=== PATIENT | female | born 1955 | race Caucasian/White ===

== ENCOUNTER 2023-07-02 10:41 | Outpatient (CLI) | payer MEDICARE, SELFPAY ==
[2023-07-02 19:07] LABS: Basophils Percent Auto 0.4 % (0.2-1.2); Eosinophils Absolute Auto 0.1 K/mm3 (0-0.3); Eosinophils Percent Auto 1.2 % (0-4.4); Hematocrit 38.9 % (37.0-47.0); Hemoglobin 12.9 g/dL (12.0-15.0); Immature Granulocyte Absolute 0.03 K/mm3 (0.00-0.031); Immature Granulocyte Percent A 0.3 % (0-0.5); Lymphocytes Absolute Auto 1.86 K/mm3 (0.9-3.2); Lymphocytes Percent Auto 17.9 % (18.3-44.2); Mean Corpuscular HGB Conc 33.2 g/dl (32-36); Mean Corpuscular Hemoglobin 30.6 pg (26-34); Mean Corpuscular Volume 92.4 fl (80-100); Mean Platelet Volume 10.4 fl (7.4-10.4); Monocytes Absolute Auto 0.7 K/mm3 (0.1-0.6); Monocytes Percent Auto 6.3 % (2.6-8.5); Neutrophils Absolute Auto 7.7 K/mm3 (1.3-6.7); Neutrophils Percent Auto 73.9 % (45.5-73.1); Platelet Count Result 375 k/mm3 (150-375); Red Blood Count 4.21 M/mm3 (4.2-5.4); Red Cell Distribution Width 13.6 % (11.5-14.5); White Blood Count 10.4 K/mm3 (4.5-10.0)
[2023-07-02 19:44] LABS: Alanine Aminotransferase 21 U/L (6-35); Albumin Level 4.7 g/dL (3.5-5.1); Alkaline Phosphatase 75 U/L (38-126); Anion Gap 5 mmol/L (8-16); Aspartate Amino Transferase 32 U/L (14-36); Bilirubin,Total 0.4 mg/dL (0.2-1.3); Blood Urea Nitrogen 12 mg/dL (7-17); Calcium 9.5 mg/dL (8.4-10.2); Carbon Dioxide 30 mmol/L (22-30); Chloride 100 mmol/L (98-107); Cholesterol 176 mg/dL (0-200); Estimated Glomerular Filt Rate > 60; Glucose 81 mg/dL (65-110); HDL Direct 55 mg/dL; Potassium 4.2 mmol/L (3.4-5.0); Sodium 135 mmol/L (137-145); Triglycerides 98 mg/dL (<150)
[2023-07-02 19:51] LABS: LDL Cholesterol Direct 91 mg/dL
== END 2023-07-02 10:42 | disposition home or self-care (01) ==
PROVIDERS: PCP Family Medicine; Visit Provider Nurse Practitioner Family
DX: I10 Essential (primary) hypertension (principal); Z13.220 Encounter for screening for lipoid disorders; Z13.29 Encounter for screening for other suspected endocrine disorder; E53.8 Deficiency of other specified B group vitamins; E55.9 Vitamin D deficiency, unspecified; R73.9 Hyperglycemia, unspecified
CPT/HCPCS: 36415; 80053; 80061; 82607; 84443; 85025

== ENCOUNTER 2023-08-30 11:36 | Outpatient (CLI) | payer MEDICARE, SELFPAY ==
[2023-08-30 21:14] LABS: Vitamin D 25 Hydroxy 36.1 ng/mL
[2023-08-30 22:38] LABS: Hemoglobin A1C 5.3 % (<5.7)
== END 2023-08-30 11:37 | disposition home or self-care (01) ==
PROVIDERS: PCP Family Medicine; Visit Provider Nurse Practitioner Family
DX: E55.9 Vitamin D deficiency, unspecified (principal); R73.9 Hyperglycemia, unspecified; E03.9 Hypothyroidism, unspecified; E53.8 Deficiency of other specified B group vitamins
CPT/HCPCS: 36415; 82306; 82607; 83036; 84443

== ENCOUNTER 2023-10-21 13:53 | Outpatient (CLI) | payer MEDICARE, SELFPAY ==
--- NOTE | ~2023-10-21 | DEXA_ITS ---
Bone Density Report Name: TREVA SHOEMAKER Age: 68 Sex: Female Ethnicity: White Date of : 1955 Indication: postmenopausal; screening for osteoporosis; Referring Provider: ENOC MORALES Study: Bone densitometry was performed. Exam Date: October 21, 2023 Accession number: [id number] Bone Density: Region BMD T-score Z-score Classification AP Spine(L1-L4) 1.106 0.5 2.5 Normal Femoral Neck (Left) 0.696 -1.4 0.3 Osteopenia Total Hip (Left) 0.826 -1.0 0.5 Normal Femoral Neck (Right) 0.662 -1.7 0.0 Osteopenia Total Hip (Right) 0.794 -1.2 0.2 Osteopenia Total Hip Mean 0.810 -1.1 0.4 Osteopenia World Health Organization criteria for BMD impression classify patients as: Normal (T-score at or above -1.0), Osteopenia (T-score between -1.0 and -2.5), or Osteoporosis (T-score at or below -2.5). 10-year Fracture Risk(1): Major Osteoporotic Fracture 10% Hip Fracture 2.4% Reported Risk Factors: [place] (), Neck BMD=0.662, BMI=25.2, smoking (1) FRAX(R) Version 3.08. Fracture probability calculated for an untreated patient. Fracture probability may be lower if the patient has received treatment. Clinical Information Provided by Patient: Smokes Has used the following medications: Vitamin D, vitamin b Patient maximum height was 66 No regular weight bearing exercise Drinks caffeinated beverages Onset of menses at age 13 Number of children 2 Impression: The patient has low bone mass, based on the Right Femoral Neck T-score. The patient has an estimated ten-year risk of hip fracture of 2.4% and an estimated ten-year risk of major fracture of 10%, based on the WHO FRAX algorithm. The patient has risk factors, including: smoking. Discussion: BONE DENSITY IS LOW AT ONE OR MORE SKELETAL SITES. This patient's lowest T-score is low at one or more skeletal sites. It meets the World Health Organization's (WHO) criteria for ?low bone mass? (T-score between -1.0 and -2.5). The patient's 10-year risk of fracture as calculated by FRAX is less than the threshold where pharmacological therapy is recommended by the National Osteoporosis Foundation (NOF). However, all treatment decisions require clinical judgment and consideration of individual patient factors, including patient preferences, comorbidities, previous drug use, risk factors not captured in the FRAX model (e.g., frailty, falls, vitamin D deficiency, increased bone turnover, interval significant decline in bone density) and possible under or overestimation of fracture risk by FRAX. The patient should follow a healthful lifestyle (good nutrition with adequate calcium and vitamin D, and appropriate weight-bearing exercise). Follow-Up: Consider repeating this study in 2 to 3 years to reassess this patient's status, or sooner if ther
--- NOTE | ~2023-10-21 | MM_ITS ---
EXAMINATION: MM screening donna BI w crista HISTORY: Screening mammogram TECHNIQUE: Craniocaudal and mediolateral oblique 3-D tomosynthesis images were obtained and synthetic 2-D images were generated. CAD analysis was submitted and interpreted. COMPARISON: No prior mammogram is available for comparison at this institution. BREAST PARENCHYMAL COMPOSITION: The breasts are almost entirely fatty. FINDINGS: RIGHT BREAST: There is a low-density mass in the middle third of the outer breast, 6 cm from the nipp le. An asymmetry is present in the anterior third of the slightly outer breast 3.5 cm from the nipple on the craniocaudal view. LEFT BREAST: An asymmetry is present in the anterior third of the breast in line with the nipple axis , 3 cm from the nipple on the craniocaudal view. IMPRESSION: 1. Bilateral breast findings which may represent the patient's baseline however no comparison is curr ently available. 2. Comparison with prior mammograms is necessary. BI-RADS Category 0: Incomplete: Needs comparison with prior mammograms. Reviewed, dictated and finalized at location A. F SERVICE OBSERVER IMPRESSION: 1. Bilateral breast findings which may represent the patient's baseline however no comparison is currently available. 2. Comparison with prior mammograms is necessary. BI-RADS Category 0: Incomplete: Needs comparison with prior mammograms.
== END 2023-10-21 13:54 | disposition home or self-care (01) ==
LOC: ANHIMG 13:58
PROVIDERS: PCP Family Medicine; Visit Provider Nurse Practitioner Family
DX: Z12.31 Encounter for screening mammogram for malignant neoplasm of breast (principal); Z78.0 Asymptomatic menopausal state; R92.8 Other abnormal and inconclusive findings on diagnostic imaging of breast; M85.852 Other specified disorders of bone density and structure, left thigh; M85.851 Other specified disorders of bone density and structure, right thigh
CPT/HCPCS: 77063; 77067; 77080

== ENCOUNTER 2023-12-10 12:40 | Outpatient (CLI) | payer MEDICARE, SELFPAY ==
--- NOTE | ~2023-12-10 | MMUS_ITS ---
EXAMINATION: MM diagnostic donna BI w crista, US breast BI limited HISTORY: 10/21/2023 screening mammogram findings: Low density mass in middle third of outer right [address] 6 cm from nipple and asymmetry in anterior third of slightly outer right breast 3.5 cm from the ni pple on craniocaudal view. Left breast asymmetry in anterior third in line with the nipple axis, 3 cm from the nipple on cranioc audal view TECHNIQUE: Additional 3-D tomosynthesis images of both breasts were performed and synthetic 2-D image s were generated. CAD analysis was submitted and interpreted. High resolution upper outer and lower-o uter quadrant bilateral breast ultrasound examination was performed. COMPARISON: 10/21/2023 bilateral screening mammogram examination FINDINGS: MAMMOGRAPHIC FINDINGS: Approximately 3 mm relatively circumscribed low-density opacity is noted in the outer mid right breas t. Approximately 2.5 x 3.5 mm opacity is noted in the anterior lower mid left breast. ULTRASOUND: No suspicious mass or shadowing of either breast is detected. Right breast: 9:00 4 cm from nipple: Septated cyst of approximately 2 x 4 mm is suggested. No internal vascularity or posterior shadowing 10:00 near nipple: 3 mm circumscribed oval sonolucency, likely a benign simple cyst Left breast: 6:00 2 cm from nipple: 2.4 x 4.1 x 4.6 mm minimally septated cyst IMPRESSION: 1. Benign findings 2. Routine annual mammographic screening is recommended BI-RADS Category 2: Benign finding(s). Reviewed, dictated and finalized at location A. IMPRESSION: 1. Benign findings 2. Routine annual mammographic screening is recommended BI-RADS Category 2: Benign finding(s).
== END 2023-12-10 12:41 | disposition home or self-care (01) ==
PROVIDERS: PCP Family Medicine; Visit Provider Family Medicine
DX: N63.20 Unspecified lump in the left breast, unspecified quadrant (principal); R92.8 Other abnormal and inconclusive findings on diagnostic imaging of breast
CPT/HCPCS: 76642; 77062; 77066; G0279

== ENCOUNTER 2024-01-03 12:17 | Outpatient (CLI) | payer MEDICARE, SELFPAY ==
--- NOTE | 2024-01-03 12:43 | ECHO_ITS ---
Patient Info Name: Keren Amin Age: 68 years : 1955 Gender: Female Ht: 67 in Wt: 155 lbs BSA: 1.83 m2 HR: 66 bpm BP: 164 / 84 mmHg Technical Quality: Fair Exam Date: 01/03/2024 12:53 PM Exam Location: Echo Lab Patient Status: Outpatient Admit Date: 01/03/2024 Staff Ordering Physician: Radha Lyon APRN Customs Opener Verifier Packer: Yashira Monique RDCS Attending Provider: Radha Lyon APRN Referring Physician: Sonali CARPENTER; Exam Type: CA echo doppler color flow Study Info Indications I10 - Essential (primary) hypertension Complete two-dimensional, color flow and Doppler transthoracic echocardiogram is performed. Summary 1. Complete two-dimensional, color flow and Doppler transthoracic echocardiogram is performed. 2. Left ventricular chamber dimension is normal. 3. Left ventricular systolic function is normal, estimated at 65-70%. 4. There is mild concentric increased left ventricular wall thickness. 5. The left ventricular diastolic function is grade I diastolic dysfunction. 6. E/e' 6 is not elevated. 7. Left atrial chamber dimension is mildly enlarged. 8. There is trace tricuspid valve regurgitation. 9. No pulmonary hypertension, estimated pulmonary arterial systolic pressure is 34 mmHg. 10. There is trace pulmonic regurgitation. Left Ventricle E/e' 6 is not elevated. Left ventricular chamber dimension is normal. Left ventricular systolic function is normal, estimated at 65-70%. There is mild concentric increased left ventricular wall thickness. The left ventricular diastolic function is grade I diastolic dysfunction. Right Ventricle Right ventricular chamber dimension is normal. Right ventricular systolic function is normal. Left Atria Left atrial chamber dimension is mildly enlarged. Right Atria Right atrial chamber dimension is normal. Aortic Valve The aortic valve is trileaflet. There is no aortic valve stenosis. There is no aortic valve regurgitation. Pulmonic Valve There is trace pulmonic regurgitation. Mitral Valve There is no mitral valve stenosis. There is no mitral valve regurgitation. Tricuspid Valve There is trace tricuspid valve regurgitation. No pulmonary hypertension, estimated pulmonary arterial systolic pressure is 34 mmHg. Pericardium/Pleural There is no pericardial effusion. Inferior Vena Cava Normal inferior vena cava with >50% collapse upon inspiration consistent with normal right atrial pressure, 5 mmHg. Aorta The aortic root size at the sinus of Valsalva is normal. Left Ventricular Outflow Tract Name Value Normal LVOT 2D LVOT Diameter 2.0 cm LVOT Doppler LVOT Peak Gradient 4 mmHg LVOT Mean Gradient 2 mmHg LVOT VTI 21 cm LVOT VTI/AV VTI Ratio 0.9 LVOT Stroke Volume 65 ml LVOT CO 4.1 l/min LVOT CI 2.2 l/min/m2 Pulmonic Valve Name Value Normal RV
== END 2024-01-03 12:18 | disposition home or self-care (01) ==
LOC: ANHCARD 12:18
PROVIDERS: PCP Family Medicine; Visit Provider Nurse Practitioner Family
DX: I10 Essential (primary) hypertension (principal)
CPT/HCPCS: 93306

== ENCOUNTER 2024-02-17 10:16 | Outpatient (CLI) | payer MEDICARE, SELFPAY ==
--- NOTE | 2024-02-17 10:45 | EST_ITS ---
Patient Info Name: Keren Amin Age: 68 years : 1955 Gender: Female Ht: 67 in Wt: 155 lbs BSA: 1.83 m2 HR: 69 bpm BP: 189 / 73 mmHg Heart Rhythm: Sinus Rhythm Exam Date: 02/17/2024 11:27 AM Exam Location: Echo Lab Patient Status: Outpatient Admit Date: 02/17/2024 Staff Ordering Physician: Khurram Wilson DO Attending Provider: Khurram Wilson DO Exercise Technologist: Quynh Varela CT Exercise Physician: Khurram Wilson DO Exam Type: CA stress test treadmill Study Info Indications R07.9 - Chest pain, unspecified A treadmill exercise stress test was performed. Summary 1. 1. Abnormal [place] exercise stress test for ischemic ST changes by ECG criteria. 2. 2. Poor functional capacity, achieving 4 METs of workload. 3. 3. Baseline hypertension. 4. 4. Appropriate HR response to exercise. 5. 5. Appropriate HR recovery at 1 minute post exercise. 6. 6. No imaging with stress testing. 7. 7. Patient informed of the above results. Protocol: [place] Stress ECG Details Stage: REST Duration (min): 4 min : 4 sec Speed (mph): 0.0 Grade (%): 0 HR (bpm): 67 SBP (mmHg): 189 DBP (mmHg): 73 METS: --- Stage: REST Duration (min): 14 min : 19 sec Speed (mph): 0.0 Grade (%): 0 HR (bpm): 72 SBP (mmHg): 189 DBP (mmHg): 73 METS: --- Stage: STAGE 1 Duration (min): 1 min : 0 sec Speed (mph): 1.7 Grade (%): 10 HR (bpm): 107 SBP (mmHg): 189 DBP (mmHg): 73 METS: --- Stage: STAGE 1 Duration (min): 1 min : 52 sec Speed (mph): 1.7 Grade (%): 10 HR (bpm): 131 SBP (mmHg): 189 DBP (mmHg): 73 METS: --- Stage: RECOVERY Duration (min): 0 min : 7 sec Speed (mph): 1.5 Grade (%): 0 HR (bpm): 135 SBP (mmHg): 189 DBP (mmHg): 73 METS: --- Stage: RECOVERY Duration (min): 1 min : 7 sec Speed (mph): 0.0 Grade (%): 0 HR (bpm): 103 SBP (mmHg): 189 DBP (mmHg): 73 METS: --- Stage: RECOVERY Duration (min): 2 min : 7 sec Speed (mph): 0.0 Grade (%): 0 HR (bpm): 88 SBP (mmHg): 189 DBP (mmHg): 73 METS: --- Stage: RECOVERY Duration (min): 3 min : 7 sec Speed (mph): 0.0 Grade (%): 0 HR (bpm): 86 SBP (mmHg): 195 DBP (mmHg): 92 METS: --- Stage: RECOVERY Duration (min): 4 min : 7 sec Speed (mph): 0.0 Grade (%): 0 HR (bpm): 87 SBP (mmHg): 195 DBP (mmHg): 92 METS: --- Stage: RECOVERY Duration (min): 5 min : 7 sec Speed (mph): 0.0 Grade (%): 0 HR (bpm): 86 SBP (mmHg): 184 DBP (mmHg): 89 METS: --- Stage: RECOVERY Duration (min): 6 min : 7 sec Speed (mph): 0.0 Grade (%): 0 HR (bpm): 94 SBP (mmHg): 184 DBP (mmHg): 89 METS: --- Stage: RECOVERY Duration (min): 7 min : 7 sec Speed (mph): 0.0 Grade (%): 0 HR (bpm): 94 SBP (mmHg): 172 DBP (mmHg): 90 METS: --- Stage: RECOVERY Duration (min): 8 min : 7 sec Speed (mph): 0.0 Grade (%): 0 HR (bpm): 97 SBP (mmHg):
== END 2024-02-17 10:17 | disposition home or self-care (01) ==
LOC: ANHCARD 10:17
PROVIDERS: PCP Family Medicine; Visit Provider Internal Medicine Cardiovascular Disease
DX: R07.9 Chest pain, unspecified (principal)
CPT/HCPCS: 93017

== ENCOUNTER 2024-02-17 12:32 | Outpatient (CLI) | payer MEDICARE, SELFPAY ==
[2024-02-17 13:49] LABS: Basophils Percent Auto 0.3 % (0.2-1.2); Eosinophils Absolute Auto 0.1 K/mm3 (0-0.3); Eosinophils Percent Auto 0.7 % (0-4.4); Immature Granulocyte Absolute 0.04 K/mm3 (0.00-0.031); Immature Granulocyte Percent A 0.3 % (0-0.5); Lymphocytes Absolute Auto 2.05 K/mm3 (0.9-3.2); Lymphocytes Percent Auto 15.2 % (18.3-44.2); Mean Corpuscular HGB Conc 31.4 g/dl (32-36); Mean Corpuscular Hemoglobin 28.5 pg (26-34); Mean Corpuscular Volume 90.7 fl (80-100); Mean Platelet Volume 10.2 fl (7.4-10.4); Monocytes Absolute Auto 0.7 K/mm3 (0.1-0.6); Neutrophils Absolute Auto 10.6 K/mm3 (1.3-6.7); Neutrophils Percent Auto 78.5 % (45.5-73.1); Platelet Count Result 447 k/mm3 (150-375); Red Blood Count 3.86 M/mm3 (4.2-5.4); Red Cell Distribution Width 14.3 % (11.5-14.5); White Blood Count 13.5 K/mm3 (4.5-10.0)
[2024-02-17 13:57] LABS: Alanine Aminotransferase 15 U/L (6-35); Albumin Level 4.6 g/dL (3.5-5.1); Alkaline Phosphatase 78 U/L (38-126); Anion Gap 9 mmol/L (4-12); Aspartate Amino Transferase 52 U/L (14-36); Bilirubin,Total 0.4 mg/dL (0.2-1.3); Blood Urea Nitrogen 12 mg/dL (7-17); Calcium 9.9 mg/dL (8.4-10.2); Carbon Dioxide 25 mmol/L (22-30); Chloride 101 mmol/L (98-107); Estimated Glomerular Filt Rate > 60; Glucose 96 mg/dL (65-110); Potassium 4.1 mmol/L (3.4-5.0); Sodium 135 mmol/L (137-145)
[2024-02-17 18:17] LABS: Hemoglobin A1C 5.3 % (<5.7)
== END 2024-02-17 12:33 | disposition home or self-care (01) ==
LOC: ANHGOSHLAB 12:34
PROVIDERS: PCP Family Medicine; Visit Provider Nurse Practitioner Family
DX: Z00.00 Encounter for general adult medical examination without abnormal findings (principal); E03.9 Hypothyroidism, unspecified; E78.5 Hyperlipidemia, unspecified; I10 Essential (primary) hypertension; R73.03 Prediabetes; Z13.29 Encounter for screening for other suspected endocrine disorder
CPT/HCPCS: 36415; 80053; 83036; 84443; 85025

== ENCOUNTER 2024-03-07 03:34 | Day surgery (SDC) | payer MEDICARE, SELFPAY ==
[2024-03-06 14:28] VITALS: BMI 23.8
[2024-03-07] VITALS (16 sets, daily range): BP systolic 106–152; BP diastolic 40–93; PULSE 67–80; RESP 14–21; TEMP 37.1; O2SAT 90–95
[2024-03-07 10:27] LABS: Basophils Percent Auto 0.2 % (0.2-1.2); Eosinophils Absolute Auto 0.1 K/mm3 (0-0.3); Eosinophils Percent Auto 0.9 % (0-4.4); Hematocrit 34.2 % (37.0-47.0); Immature Granulocyte Absolute 0.04 K/mm3 (0.00-0.031); Immature Granulocyte Percent A 0.3 % (0-0.5); Lymphocytes Absolute Auto 1.82 K/mm3 (0.9-3.2); Lymphocytes Percent Auto 14.2 % (18.3-44.2); Mean Corpuscular HGB Conc 32.2 g/dl (32-36); Mean Corpuscular Hemoglobin 28.4 pg (26-34); Mean Corpuscular Volume 88.1 fl (80-100); Mean Platelet Volume 9.4 fl (7.4-10.4); Monocytes Absolute Auto 0.8 K/mm3 (0.1-0.6); Monocytes Percent Auto 6.5 % (2.6-8.5); Neutrophils Percent Auto 77.9 % (45.5-73.1); Platelet Count Result 435 k/mm3 (150-375); Red Blood Count 3.88 M/mm3 (4.2-5.4); Red Cell Distribution Width 14.8 % (11.5-14.5); White Blood Count 12.8 K/mm3 (4.5-10.0)
[2024-03-07 10:45] LABS: Anion Gap 9 mmol/L (4-12); Blood Urea Nitrogen 14 mg/dL (7-17); Calcium 9.6 mg/dL (8.4-10.2); Carbon Dioxide 25 mmol/L (22-30); Chloride 103 mmol/L (98-107); Estimated CRCL calculation 64 ml/min; Estimated Glomerular Filt Rate > 60; Glucose 101 mg/dL (65-110); Potassium 4.1 mmol/L (3.4-5.0); Sodium 137 mmol/L (137-145)
--- NOTE | 2024-03-07 11:27 | WPDHPUPDATE1 ---
History and Physical Update Update Date/Time: 03/07/24 11:27 History and Physical has been reviewed, including an updated exam of the patient. There are NO changes in the patient's condition. Risks, benefits, and alternatives have been discussed and questions answered. Patient agrees to proceed with procedure.
--- NOTE | 2024-03-07 11:27 | WPDMODSED ---
Moderate Sedation Note-Pt Data Patient Data Diagnosis: Coronary artery disease Present Complaint: Coronary artery disease Procedure to be performed/Plan: Coronary angiography, left heart cath, +/- PCI Allergies Allergy/AdvReac Type Severity Reaction Status Date / Time No Known Allergies Allergy Verified 03/07/24 10:10 Home Medications Medication Instructions Recorded Confirmed Type mecobalamin (vitamin B12) 1,000 1,000 mcg PO QTUTHSA 05/06/22 03/07/24 History mcg chewable tablet citalopram 20 mg tablet 20 mg PO DAILY #90 tabs 11/01/23 03/07/24 Rx amlodipine 5 mg-valsartan 160 mg 1 tablet PO DAILY #90 tabs 12/16/23 03/07/24 Rx tablet atorvastatin 10 mg tablet 10 mg PO DAILY #90 tabs 12/16/23 03/07/24 Rx calcium carb-ergocalciferol (vit 1 tablet PO DAILY 12/16/23 03/07/24 History D2) 500 mg (1,250 mg)-200 unit tablet cyclobenzaprine 10 mg tablet 10 mg PO TID PRN muscle spasm #90 12/16/23 03/07/24 Rx tabs alprazolam 0.5 mg tablet 0.5 mg PO BID PRN anxiety #180 tabs 01/27/24 03/07/24 Rx tramadol 50 mg tablet 50 mg PO BID PRN pain #60 tabs 01/27/24 03/07/24 Rx aspirin 81 mg tablet,delayed 81 mg PO HS 02/18/24 03/07/24 History release levothyroxine 100 mcg tablet 100 mcg PO DAILY #30 tabs 02/24/24 03/07/24 Rx Current Medications: Active Medications Sodium Chloride (Normal Saline Iv) 500 mls @ 100 mls/hr IV CONT .Q5H GEORGE Sedation/Anesthesia: No previous sedation/anesthesia problems (including family history). [facility] Past Medical History Medical History Abnormal WBC count Abnormality of right breast on screening mammogram Allergies Anxiety Chronic neck and back pain Dyslipidemia Environmental allergies Essential (primary) hypertension Hypothyroidism Intermittent palpitations Left breast mass Vitamin B12 deficiency Vitamin D deficiency Surgical History Surgical History H/O neck surgery X3 - 2018, 2015 and 2013 Metal plate in neck History of appendectomy (~1969) History of section, classical (~1976) History of lumbar spinal fusion (~02/2000) Previous back surgery Steel Rods in back Family History Family History Father Hypertension Heart disease Mother Heart disease Hypertension Sibling Hypertension Son Hypertension Social History Social History Smoking packs per day: 0.5 Smoking cigarettes per day: 10.0 Smoking status: Current every day smoker Tobacco type: cigarettes Alcohol intake: never Substance use: never Substance use type: does not use Lack of Transportation: No Lack of Food: Never True Current Housing: I Have Housing Concerned About Future Housing: No Difficulty Paying Gas/Electric Bills: No Difficulty Paying for Meds: No Currently Unemployed: No Education: High School Diploma/GED Difficulty w/ Childcare or Family Care: No Living arrangements: alone Spiritual care concerns: No Agree to blood products: Yes Mod Sed Physical Exam Physical Exam Pre Procedural Exam: Normal: Appearance, Lungs, Heart Rate, Heart Rhythm, Neuro Exam, Abdomen, Extremities and Skin Hours since solid foods: 12 Hours since liquid intake: 8 Mallampati Classification: class II Internal Medicine - PN: Obj Da Vital Signs Vital Signs: Vital Signs - 24 hr 03/07/24 10:12 Temperature 37.1 C Pulse Rate 77 Respiratory Rate 16 Blood Pressure 131/74 Pulse Oximetry 94 Oxygen Delivery Room Air Meds/Results Medications: Active Medications Generic Name Dose Route Start Last Admin Trade Name Freq PRN Reason Stop Dose Admin Sodium Chloride 500 mls @ 100 mls/hr 03/07/24 10:00 Normal Saline Iv IV CONT .Q5H GEORGE Labs 03/07/24 10:20 03/07/24 10:20 Labs: Laboratory Results - l
--- NOTE | 2024-03-07 11:28 | WPDCARDPROC ---
Cardiac Cath Procedure Note Date of procedure:: 03/07/24 Performing physician:: CATHETERIZATION LABORATORY REPORT Procedure Date: 03/07/2024 Line Service Attendant: Charan Lua M.D., [facility]? Referring Physician: Khurram Wilson M.D. ? Anesthesia: Versed and Fentanyl were ordered and given in my presence at 11:35, procedure ended at 11:53. Supervision of nurse monitored moderate sedation with Versed and Fentanyl was provided for 18 minutes. Total of Versed 1mg and Fentanyl 25mcg were administered by the Editor At Large RN Yashira Vidal. Pre-op Diagnosis: Coronary artery disease Post-op Diagnosis: Mild non-obstructive coronary artery disease Procedure(s): 1. Moderate sedation 2. Ultrasound guided access of the right radial artery 3. Coronary angiography Access Site: Right radial artery Brief History and Clinical Indications: Patient is a 68 year old female with history of ablation for arrhythmia in 2013, hypertension, hyperlipidemia, tobacco dependence who is referred for [facility] for abnormal stress test. All risks, benefits and alternatives to left heart catheterization with or without percutaneous coronary intervention was discussed at length with the patient. Risk of complications including but not limited to bleeding, infection, arrhythmia, stroke, worsening kidney function, blood loss, groin hematoma, limb loss, emergency coronary artery bypass grafting, and even were discussed with the patient and all questions were answered. The patient understood and wished to proceed. Time out called, patient name, date of , medical record number, allergies, procedure performed, identify Line Service Attendant, patient and staff member concurred with accurate data, procedure carried on. Findings: LEFT HEART CATHETERIZATION FINDINGS: 1. Left main: The left main coronary artery is widely patent without any significant obstructive disease. 2. Left anterior descending: The mid LAD has mild disease. Otherwise, remainder of the LAD and the diagonal branches have mild luminal irregularities without any significant obstructive angiographic disease. 3. Left circumflex: The left circumflex artery and the main marginal branches have mild luminal irregularities without any significant obstructive angiographic disease. 4. Right coronary artery: The RCA has luminal irregularities without any significant obstructive angiographic disease. The RCA is the dominant vessel. Description of Procedure: Informed consent signed and placed in the chart. Patient transferred to medical lab technician room. Prepped and draped in usual sterile fashion. 2% lidocaine injected subcutaneously in right wrist area. 22-gauge venipuncture catheter used to access the right radial artery under ultrasound guidance. 6-FR slender sheath placed in right radial artery. Nitroglycerine and Verapamil were given intraarterial through the sheath. Versacore wire advanced under fluoroscopy 5F Tig 4 diagnostic catheter engaged Left Main Coronary Artery. 5F Tig 4 diagnostic catheter engaged Right Coronary Artery Multiple orthogonal angiogram obtained and reviewed Hemostasis was achieved by application of TR band. Post Operative Condition: Stable No significant blood loss Disposition: Home Plan: The patient will be monitored in the recovery area. Discharge home after post cath bed rest is completed. The above findings were discussed with the referring physician. Continue aggressive medical therapy and risk factor modification. ? Charan Lua M.D. Interventional Cardiology
--- NOTE | 2024-03-07 15:23 | SUR.PHASEII ---
Upon exiting the elevator I noticed bruising at the puncture site. I palpated the site and it was tender to the touch. Applied firm pressure to the hematoma and brought the patient back to the unit and called Dr. Lua to assess the patient. She said to press out the hematoma and watch her for 30 minutes.
== END 2024-03-07 15:58 | disposition home or self-care (01) ==
PROVIDERS: PCP Family Medicine; Visit Provider Internal Medicine
PROC: (CPT 93454; principal; 2024-03-07 11:30)
DX: I25.10 Atherosclerotic heart disease of native coronary artery without angina pectoris (principal); R94.39 Abnormal result of other cardiovascular function study; I10 Essential (primary) hypertension; E03.9 Hypothyroidism, unspecified; E55.9 Vitamin D deficiency, unspecified; E53.8 Deficiency of other specified B group vitamins; F17.210 Nicotine dependence, cigarettes, uncomplicated; Z79.82 Long term (current) use of aspirin
CPT/HCPCS: 36415; 80048; 85025; 93454; C1769; C1887; C1894; J1644; J2250; J2305; J3010; J7040

== ENCOUNTER 2024-03-13 15:05 | Outpatient (CLI) | payer MEDICARE, SELFPAY ==
[2024-03-13 15:41] LABS: Basophils Percent Auto 0.2 % (0.2-1.2); Eosinophils Absolute Auto 0.1 K/mm3 (0-0.3); Eosinophils Percent Auto 0.9 % (0-4.4); Hematocrit 35.3 % (37.0-47.0); Hemoglobin 11.4 g/dL (12.0-15.0); Immature Granulocyte Absolute 0.02 K/mm3 (0.00-0.031); Immature Granulocyte Percent A 0.2 % (0-0.5); Lymphocytes Absolute Auto 1.93 K/mm3 (0.9-3.2); Lymphocytes Percent Auto 17.2 % (18.3-44.2); Mean Corpuscular HGB Conc 32.3 g/dl (32-36); Mean Corpuscular Hemoglobin 28.4 pg (26-34); Mean Corpuscular Volume 87.8 fl (80-100); Mean Platelet Volume 9.5 fl (7.4-10.4); Monocytes Absolute Auto 0.7 K/mm3 (0.1-0.6); Monocytes Percent Auto 6.1 % (2.6-8.5); Neutrophils Absolute Auto 8.5 K/mm3 (1.3-6.7); Neutrophils Percent Auto 75.4 % (45.5-73.1); Platelet Count Result 471 k/mm3 (150-375); Red Blood Count 4.02 M/mm3 (4.2-5.4); Red Cell Distribution Width 14.6 % (11.5-14.5); White Blood Count 11.2 K/mm3 (4.5-10.0)
[2024-03-13 16:44] LABS: Iron 47 ug/dL (37-170)
[2024-03-13 16:57] LABS: Alanine Aminotransferase 14 U/L (6-35); Alkaline Phosphatase 91 U/L (38-126); Anion Gap 10 mmol/L (4-12); Aspartate Amino Transferase 30 U/L (14-36); Bilirubin,Total 0.5 mg/dL (0.2-1.3); Blood Urea Nitrogen 12 mg/dL (7-17); Calcium 9.7 mg/dL (8.4-10.2); Carbon Dioxide 21 mmol/L (22-30); Chloride 103 mmol/L (98-107); Estimated Glomerular Filt Rate > 60; Glucose 94 mg/dL (65-110); Lactate Dehydrogenase 197 U/L (120-246); Percent Iron Saturation 10 % (20-50); Potassium 3.9 mmol/L (3.4-5.0); Sodium 134 mmol/L (137-145)
[2024-03-13 17:53] LABS: Erythrocyte Sedimentation Rate 20 mm/hr (0-20)
[2024-03-13 17:57] LABS: Folic Acid 9.2 ng/mL (2.76->20)
[2024-03-17 14:58] LABS: Soluble Transferrin Receptor 2.11 mg/L (0.76-1.76)
[2024-03-17 17:24] LABS: Methylmalonic Acid 87 nmol/L (69-390)
== END 2024-03-13 15:06 | disposition home or self-care (01) ==
LOC: ANHLAB 15:07
PROVIDERS: PCP Family Medicine; Visit Provider Internal Medicine Hematology & Oncology
DX: D72.829 Elevated white blood cell count, unspecified (principal); D75.839 Thrombocytosis, unspecified; D50.9 Iron deficiency anemia, unspecified
CPT/HCPCS: 36415; 80053; 82607; 82728; 82746; 83540; 83550; 83615; 83921; 84238; 85025; 85652; 86140; 88184

== ENCOUNTER 2024-04-12 13:36 | Outpatient (CLI) | payer MEDICARE, SELFPAY ==
[2024-04-12 20:07] LABS: Hematocrit 36.4 % (37.0-47.0); Hemoglobin 11.8 g/dL (12.0-15.0); Mean Corpuscular HGB Conc 32.4 g/dl (32-36); Mean Corpuscular Hemoglobin 28.7 pg (26-34); Mean Corpuscular Volume 88.6 fl (80-100); Mean Platelet Volume 9.9 fl (7.4-10.4); Platelet Count Result 570 k/mm3 (150-375); Red Blood Count 4.11 M/mm3 (4.2-5.4); Red Cell Distribution Width 15.4 % (11.5-14.5); White Blood Count 13.5 K/mm3 (4.5-10.0)
[2024-04-12 20:28] LABS: Alanine Aminotransferase 14 U/L (6-35); Albumin Level 4.7 g/dL (3.5-5.1); Alkaline Phosphatase 86 U/L (38-126); Amylase 55 U/L (30-110); Anion Gap 10 mmol/L (4-12); Aspartate Amino Transferase 33 U/L (14-36); Bilirubin,Total 0.3 mg/dL (0.2-1.3); Blood Urea Nitrogen 16 mg/dL (7-17); Carbon Dioxide 32 mmol/L (22-30); Chloride 93 mmol/L (98-107); Estimated Glomerular Filt Rate > 60; Glucose 102 mg/dL (65-110); Lipase 46 U/L (23-300); Potassium 4.5 mmol/L (3.4-5.0); Sodium 135 mmol/L (137-145)
[2024-04-12 21:57] LABS: Free T4 Free Thyroxine Reflex 1.11 ng/dL (0.78-2.19)
[2024-04-12 22:38] LABS: Total Triiodothyronine (T3) 1.03 NG/ML (0.97-1.69)
== END 2024-04-12 13:37 | disposition home or self-care (01) ==
PROVIDERS: PCP Family Medicine; Visit Provider Nurse Practitioner Family
DX: R10.11 Right upper quadrant pain (principal); R11.0 Nausea; R11.10 Vomiting, unspecified; R19.7 Diarrhea, unspecified; E78.5 Hyperlipidemia, unspecified; E03.9 Hypothyroidism, unspecified; R94.39 Abnormal result of other cardiovascular function study; R00.2 Palpitations; I10 Essential (primary) hypertension
CPT/HCPCS: 36415; 80053; 82150; 83690; 84439; 84443; 84480; 85027

== ENCOUNTER 2024-04-12 13:49 | Outpatient (CLI) | payer MEDICARE, SELFPAY ==
--- NOTE | ~2024-04-12 | XR_ITS ---
XR abdomen/kub 1V Ordering provider: Radha Lyon APRN History: . WEAKNESS SOB NAUSEA CP FOR 2-3 WEEKS . Comparison: None. FINDINGS: BOWEL: Nonobstructive bowel gas pattern. ORGANOMEGALY: None. SIGNIFICANT PATHOLOGIC CALCIFICATIONS: None. OTHER: No free air is seen under the diaphragm. Postoperative changes in the lower spine. Bilateral sacroiliitis more on the right side. Degenerative spine. IMPRESSION: NO ACUTE ABDOMINAL FINDINGS. Reviewed, dictated and finalized at location A.
--- NOTE | ~2024-04-12 | XR_ITS ---
EXAMINATION: XR chest 2V 04/12/2024 14:20 INDICATION: Shortness of breath. Weakness. PROCEDURE: 2 view chest COMPARISON: No prior studies for comparison. FINDINGS: The lungs are clear. The cardiomediastinal silhouette is within normal limits. There are no pleural effusions. There is no pneumothorax suspected. IMPRESSION: 1: NO ACUTE CARDIOPULMONARY DISEASE. Reviewed, dictated and finalized at location B.
== END 2024-04-12 13:50 ==
PROVIDERS: PCP Family Medicine; Visit Provider Nurse Practitioner Family
DX: I10 Essential (primary) hypertension (principal); R00.2 Palpitations; R10.11 Right upper quadrant pain; R10.9 Unspecified abdominal pain; R11.0 Nausea; R11.10 Vomiting, unspecified; R19.7 Diarrhea, unspecified; R94.39 Abnormal result of other cardiovascular function study
CPT/HCPCS: 71046; 74018

== ENCOUNTER 2024-06-19 14:33 | Outpatient (CLI) | payer MEDICARE, SELFPAY ==
[2024-06-19 14:58] LABS: Basophils Percent Auto 0.3 % (0.2-1.2); Eosinophils Absolute Auto 0.1 K/mm3 (0-0.3); Eosinophils Percent Auto 0.5 % (0-4.4); Hematocrit 34.9 % (37.0-47.0); Immature Granulocyte Absolute 0.03 K/mm3 (0.00-0.031); Immature Granulocyte Percent A 0.3 % (0-0.5); Lymphocytes Absolute Auto 1.97 K/mm3 (0.9-3.2); Lymphocytes Percent Auto 16.9 % (18.3-44.2); Mean Corpuscular HGB Conc 31.5 g/dl (32-36); Mean Corpuscular Hemoglobin 27.8 pg (26-34); Mean Corpuscular Volume 88.4 fl (80-100); Monocytes Absolute Auto 0.7 K/mm3 (0.1-0.6); Monocytes Percent Auto 5.9 % (2.6-8.5); Neutrophils Absolute Auto 8.9 K/mm3 (1.3-6.7); Neutrophils Percent Auto 76.1 % (45.5-73.1); Platelet Count Result 480 k/mm3 (150-375); Red Blood Count 3.95 M/mm3 (4.2-5.4); Red Cell Distribution Width 14.1 % (11.5-14.5); White Blood Count 11.6 K/mm3 (4.5-10.0)
[2024-06-19 16:47] LABS: Iron 55 ug/dL (37-170)
[2024-06-19 16:50] LABS: Alanine Aminotransferase 11 U/L (6-35); Albumin Level 4.6 g/dL (3.5-5.1); Alkaline Phosphatase 81 U/L (38-126); Anion Gap 10 mmol/L (4-12); Aspartate Amino Transferase 22 U/L (14-36); Bilirubin,Total 0.2 mg/dL (0.2-1.3); Blood Urea Nitrogen 21 mg/dL (7-17); Calcium 9.8 mg/dL (8.4-10.2); Carbon Dioxide 27 mmol/L (22-30); Chloride 95 mmol/L (98-107); Estimated Glomerular Filt Rate > 60; Glucose 104 mg/dL (65-110); Sodium 132 mmol/L (137-145)
[2024-06-19 16:56] LABS: Percent Iron Saturation 12 % (20-50)
[2024-06-19 17:53] LABS: Folic Acid 5.8 ng/mL (2.76->20)
== END 2024-06-19 14:34 | disposition home or self-care (01) ==
LOC: ANHLAB 14:36
PROVIDERS: PCP Family Medicine; Visit Provider Internal Medicine Hematology & Oncology
DX: D72.829 Elevated white blood cell count, unspecified (principal); D75.839 Thrombocytosis, unspecified; D50.9 Iron deficiency anemia, unspecified
CPT/HCPCS: 36415; 80053; 82607; 82728; 82746; 83540; 83550; 85025

== ENCOUNTER 2024-07-24 13:59 | Inpatient (IN) | payer MEDICARE, SELFPAY ==
--- NOTE | ~2024-07-24 | CT_ITS ---
EXAMINATION: CT abdomen pelvis w con DATE: 07/24/2024 16:09 INDICATION: Lower abdominal pain TECHNIQUE: Computed tomography (CT) of the abdomen and pelvis was performed with 100 mL Omnipaque-350 intravenous contrast. Automated exposure control and iterative reconstruction technique were employe d. The dose-length product was 308.31 mGy-cm. COMPARISON: None FINDINGS: Mild reticular opacities and cystic lung disease with dependent predominance at the periphery of the lower lungs which could represent either mild atelectasis superimposed over emphysema or usual inters titial pneumonia (UIP) pattern chronic interstitial lung disease. Mild cardiomegaly. No pericardial o r pleural effusion. Liver, gallbladder, pancreas, bilateral adrenal glands and right kidney are jose alberto l. 4 mm cyst at the lower pole of the left kidney. Numerous splenic calcific lesions consistent with old granulomatous disease. There is prominent wall thickening and surrounding inflammatory stranding along the inner curvature of the stomach surrounding a large collar button gastric ulcer which appear s to penetrate to the level of the serosal surface. No free intraperitoneal gas to suggest full-thick ness perforation. Single diverticulum along the sigmoid colon without adjacent inflammatory stranding to suggest diverticulitis. No bowel obstruction. The appendix is not visualized. No pericecal inflam matory change to suggest acute appendicitis. Bladder, uterus and bilateral adnexa are unremarkable. N o abscess or free intraperineal fluid. No pathologically enlarged abdominal or pelvic lymphadenopathy . Instrumented L5-S1 anterior and posterior spinal fusion with interbody bone graft cage and bilatera l vertical jennifer and pedicle screw fixation. IMPRESSION: 1. Near full-thickness collar button gastric ulcer along the greater curvature of the stomach. Reviewed, dictated and finalized at location A.
[2024-07-24 14:02] VITALS: BP 154/67; PULSE 84; RESP 15; TEMP 36.4; O2SAT 95
[2024-07-24 14:44] VITALS: BP 141/67; PULSE 73; RESP 19; O2SAT 96
--- NOTE | 2024-07-24 14:59 | ECG_ITS ---
Test Date: 2024-07-24 15:42:02 Measurements Intervals [place] Rate: 69 P: 63 NH: 158 QRS: -11 QRSD: 110 T: 19 QT: 409 QTc: 439 Interpretive Statements SINUS RHYTHM MODERATE ST DEPRESSION [0.05+ mV ST DEPRESSION] No previous ECG available for comparison Electronically Signed On 07-25-2024 09:38:20 CDT by Charan Lua M.D.
[2024-07-24 15:20] LABS: Basophils Percent Auto 0.2 % (0.2-1.2); Hematocrit 32.2 % (37.0-47.0); Hemoglobin 10.5 g/dL (12.0-15.0); Immature Granulocyte Absolute 0.06 K/mm3 (0.00-0.031); Immature Granulocyte Percent A 0.5 % (0-0.5); Lymphocytes Absolute Auto 1.22 K/mm3 (0.9-3.2); Lymphocytes Percent Auto 10.1 % (18.3-44.2); Mean Corpuscular HGB Conc 32.6 g/dl (32-36); Mean Corpuscular Hemoglobin 27.9 pg (26-34); Mean Corpuscular Volume 85.6 fl (80-100); Mean Platelet Volume 9.9 fl (7.4-10.4); Monocytes Absolute Auto 0.9 K/mm3 (0.1-0.6); Monocytes Percent Auto 7.7 % (2.6-8.5); Neutrophils Absolute Auto 9.9 K/mm3 (1.3-6.7); Neutrophils Percent Auto 81.5 % (45.5-73.1); Platelet Count Result 454 k/mm3 (150-375); Red Blood Count 3.76 M/mm3 (4.2-5.4); Red Cell Distribution Width 14.8 % (11.5-14.5); White Blood Count 12.1 K/mm3 (4.5-10.0)
--- NOTE | 2024-07-24 15:23 | ED_ITS ---
HPI - Abdominal Pain General Chief Complaint: Abdominal Pain Stated Complaint: nausea sick since Time Seen by Provider: 07/24/24 14:22 Source: patient, RN notes reviewed and old records reviewed Mode of arrival: ambulatory Limitations: no limitations History of Present Illness HPI narrative: This is a 69 year old female who presents for evaluation of upper abdominal pain and chest pain. She states she has been dealing with this issue since May. She states she was evaluated by Dr. Wilson with inclusion intern with ECHO, stress test. She reports unremarkable heart evaluation. She states since she has been having burning upper abdominal pain and chest pain. She also is having bilious vomiting. She has burning pain with vomiting. She denies diarrhea or melena. Related Data Home Medications Medication Instructions Recorded Confirmed mecobalamin (vitamin B12) 1,000 1,000 mcg PO QTUTHSA 05/06/22 06/19/24 mcg chewable tablet calcium carb-ergocalciferol (vit 1 tablet PO DAILY 12/16/23 06/19/24 D2) 500 mg (1,250 mg)-200 unit tablet aspirin 81 mg tablet,delayed 81 mg PO HS 02/18/24 06/19/24 release Allergies Allergy/AdvReac Type Severity Reaction Status Date / Time No Known Allergies Allergy Verified 07/24/24 14:05 [facility] Past Medical History Medical History Abnormal WBC count Abnormality of right breast on screening mammogram Allergies Anxiety Chronic neck and back pain Dyslipidemia Environmental allergies Essential (primary) hypertension Hypothyroidism Intermittent palpitations Left breast mass Nausea Osteopenia Vitamin B12 deficiency Vitamin D deficiency Surgical History Surgical History H/O neck surgery X3 - 2018, 2015 and 2013 Metal plate in neck History of appendectomy (~1969) History of section, classical (~1976) History of lumbar spinal fusion (~02/2000) Previous back surgery Steel Rods in back Family History Family History Father Hypertension Heart disease Mother Heart disease Hypertension Sibling Hypertension Son Hypertension Social History Social History Smoking packs per day: 0.5 Smoking cigarettes per day: 10.0 Smoking status: Current every day smoker Tobacco type: cigarettes Alcohol intake: never Substance use: never Substance use type: does not use Lack of Transportation: No Lack of Food: Never True Current Housing: I Have Housing Concerned About Future Housing: No Difficulty Paying Gas/Electric Bills: No Difficulty Paying for Meds: No Currently Unemployed: No Education: High School Diploma/GED Difficulty w/ Childcare or Family Care: No Living arrangements: alone Spiritual care concerns: No Agree to blood products: Yes Exam Const: General: no acute distress and alert Nutritional Appearance: well nourished Orientation/consciousness: patient oriented x3 HENMT: Head: normal to inspection Mouth: Yes Normal oral and palatal mucosa present, Yes lip normal and Yes moist mucous membranes Eyes: EOM: EOMs intact bilaterally Resp: Effort & Inspection: normal respiratory effort Auscultation: clear to auscultation bilaterally Cardio: Rate: regular rate Rhythm: regular rhythm Heart sounds: no murmurs GI: GI Palp: Yes Soft to palpation, Yes Tenderness to palpation present (GI) (epigastric), No Guarding due to palpation present (GI) and No Rigid due to palpation Auscultation: normal bowel sounds Skin: General skin exam: normal color Rashes: no rashes Wounds: no wounds Neuro: General: patient oriented x3, moves all extremities and CN's II-XI intact bilaterally Extrem: General: normal to inspection Psych: Mental Status: mental status grossly normal Affect: normal affect Attitude: cooperative Course Reevaluation(s) Reevaluation #1: I Discussed with patient that she was found to have gastric ulcer as the cause of her symptoms. no active bleeding. She was given protonix 40 mg , zofran 4, NS. She understands she will need potassium replacement. She will be admitted Date: 07/24/24 Time: 17:00 Consultations Consultation #1: Dr. Garcia in ER . I Discussed case and he agrees to consult. He saw patient in ER. HE will scope tomorrow. REcommend PPI q 12 hours. Date: 07/24/24 Time: 16:45 Consultation #2: Tracy accepts to hospitalist Date: 07/24/24 Time: 17:08 Vital Signs Vital signs: Vital Signs Temperature 97.5 F L 07/24/24 14:02 Pulse Rate 84 07/24/24 14:02 Respiratory Rate 15 07/24/24 14:02 Blood Pressure 154/67 H 07/24/24 14:02 Pulse Oximetry 95 07/24/24 14:02 Oxygen Delivery Room Air 07/24/24 14:02 Temperature 98.0 F 07/24/24 18:25 Pulse Rate 79 07/24/24 18:25 Respiratory Rate 17 07/24/24 18:25 Blood Pressure 139/70 07/24/24 18:25 Pulse Oximetry 93 07/24/24 18:25 Oxygen Delivery Room Air 07/24/24 14:02 MDM - Abdominal Pain Differential Diagnosis Differential diagnosis: Likely constipation, gastroenteritis, pancreatitis, small bowel obstruction and other (GERD, PUD, IN) Medical Records Attestation: I reviewed the patient's medical records. Lab Data Attestation: I reviewed the patient's lab results. 07/24/24 15:15 07/24/24 15:15 Labs: Lab Results 07/24/24 Range/Units 15:15 WBC 12.1 H (4.5-10.0) K/mm3 RBC 3.76 L (4.2-5.4) M/mm3 Hgb 10.5 L (12.0-15.0) g/dL Hct 32.2 L (37.0-47.0) % MCV 85.6 (80-100) fl MCH 27.9 (26-34) pg MCHC 32.6 (32-36) g/dl RDW 14.8 H (11.5-14.5) % Plt Count 454 H (150-375) k/mm3 MPV 9.9 (7.4-10.4) fl Immature Gran % (Auto) 0.5 (0-0.5) % Neut % (Auto) 81.5 H (45.5-73.1) % Lymph % (Auto) 10.1 L (18.3-44.2) % [place] % (Auto) 7.7 (2.6-8.5) % Eos % (Auto) 0.0 (0-4.4) % Baso % (Auto) 0.2 (0.2-1.2) % Lymph # (Auto) 1.22 (0.9-3.2) K/mm3 [place] # (Auto) 0.9 H (0.1-0.6) K/mm3 Eos # (Auto) 0.0 (0-0.3) K/mm3 Baso # (Auto) 0.0 (0.0-0.1) K/mm3 Abs Immat Gran (auto) 0.06 H (0.00-0.031) K/mm3 Absolute Neuts (auto) 9.9 H (1.3-6.7) K/mm3 Absolute Nucleated RBC 0.000 (0.0-0.012) K/mm3 Nucleated RBC % 0.0 (0.0-0.2) % PT 15.0 H (11.1-14.7) Seconds INR 1.2 APTT 32.9 (22.3-36.8) Seconds Sodium 136 L (137-145) mmol/L Potassium 2.6 L* (3.4-5.0) mmol/L Chloride 94 L (98-107) mmol/L Carbon Dioxide 32 H (22-30) mmol/L Anion Gap 10 (4-12) mmol/L BUN 28 H (7-17) mg/dL Creatinine 0.80 (0.7-1.0) mg/dL Estim Creat Clear Calc 56 ml/min Estimated GFR > 60 (59 - ) Glucose 99 (65-110) mg/dL Calcium 9.0 (8.4-10.2) mg/dL Total Bilirubin 0.4 (0.2-1.3) mg/dL AST 21 (14-36) U/L ALT 10 (6-35) U/L Alkaline Phosphatase 85 (38-126) U/L Troponin I < 0.012 (0.000-0.034) ng/mL Total Protein 8.0 (6.3-8.2) g/dL Albumin 4.2 (3.5-5.1) g/dL Lipase 60 (23-300) U/L Imaging Data Radiologist's impression: ITS Impressions Abdomen/Pelvis CT 07/24/24 16:11 IMPRESSION: 1. Near full-thickness collar button gastric ulcer along the greater curvature of the stomach. ECG Data EKG #1: Attestation: I personally reviewed and interpreted this ECG as follows: ECG completion date: 07/24/24 ECG completion time: 15:42 normal rate (69), sinus rhythm, non-specific ST changes and NL axis Critical Care Time Critical Care Time Critical Care Time: Yes Total Critical Care Time: 40 Discharge Plan Discharge Clinical Impression: Gastric ulcer, Hypokalemia Patient Disposition: Still a Patient Condition: Guarded Prognosis
[2024-07-24 15:34] LABS: Alanine Aminotransferase 10 U/L (6-35); Albumin Level 4.2 g/dL (3.5-5.1); Alkaline Phosphatase 85 U/L (38-126); Anion Gap 10 mmol/L (4-12); Aspartate Amino Transferase 21 U/L (14-36); Bilirubin,Total 0.4 mg/dL (0.2-1.3); Blood Urea Nitrogen 28 mg/dL (7-17); Carbon Dioxide 32 mmol/L (22-30); Chloride 94 mmol/L (98-107); Estimated CRCL calculation 56 ml/min; Estimated Glomerular Filt Rate > 60; Glucose 99 mg/dL (65-110); INR 1.2; Lipase 60 U/L (23-300); Potassium 2.6 mmol/L (3.4-5.0); Sodium 136 mmol/L (137-145)
[2024-07-24 15:35] LABS: Partial Thromboplastin Time 32.9 Seconds (22.3-36.8)
[2024-07-24 15:44] LABS: Troponin I < 0.012 ng/mL (0.000-0.034)
[2024-07-24] MEDS: PANTOPRAZOLE SODIUM IV 40 MG VIAL IV PUSH ×2 (15:46→21:04)
[2024-07-24] MEDS: SODIUM CHLORIDE 0.9% IV 1,000 ML 999 ML IV CONT (15:47)
[2024-07-24] MEDS: ONDANSETRON INJ 4 MG/2 ML VIAL IV PUSH ×2 (15:47→21:16)
[2024-07-24 15:57] VITALS: BP 145/59; PULSE 73; RESP 16; O2SAT 99
--- NOTE | 2024-07-24 17:00 | P.CONGI_ITS ---
Assessment and Plan Assessment and plan (1) Iron deficiency anemia: Qualifiers: Iron deficiency anemia type: unspecified iron deficiency Qualified C ode(s): D50.9 - Iron deficiency anemia, unspecified Code(s): D50.9 - Iron deficiency anemia, unspecified Status: Acute (2) Gastric ulcer: Code(s): K25.9 - Gastric ulcer, unspecified as acute or chronic, without hemorrhage or perforation Status: Acute Assessment and Plan: the patient's history and findings are suggestive of large gastric ulcer, which explains food tolerance, early satiety, weight loss and iron deficiency. Gastric malignancy is a concern given all these findings and information. We will keep her NPO and perform an EGD tomorrow. Hypokalemia secondary to protracted vomiting, will need potassium replacement intravenously. GI Consult Note Consult date/time: 07/24/24 17:00 HPI: Keren Amin is a 69 year old female with a history of coronary artery disease, who started having postprandial vomiting of bilious characteristics 4 days ago. On further questioning, patient describes early satiety for 3 or 4 months, associated with weight loss, from 155-139 lb in over 7 months. She denies melena, hematemesis, coffee-ground emesis, but she describes epigastric pain, sharp, intermittent, sometimes associated with food ingestion. She was recently found to be iron deficient and was prescribed iron but did not continue it because of epigastric discomfort and vomiting. On arrival to the emergency r oom she had a CT scan which showed a large gastric ulcer, described as collar button ulcer, penetrating to deeper layers of the stomach. Review of Systems Review of Systems: All systems reviewed & are unremarkable except as noted in HPI and below PMFSH Past Medical History Medical History Abnormal WBC count Abnormality of right breast on screening mammogram Allergies Anxiety Chronic neck and back pain Dyslipidemia Environmental allergies Essential (primary) hypertension Hypothyroidism Intermittent palpitations Left breast mass Nausea Osteopenia Vitamin B12 deficiency Vitamin D deficiency Surgical History Surgical History H/O neck surgery X3 - 2018, 2015 and 2013 Metal plate in neck History of appendectomy (~1969) History of section, classical (~1976) History of lumbar spinal fusion (~02/2000) Previous back surgery Steel Rods in back Family History Family History Father Hypertension Heart disease Mother Heart disease Hypertension Sibling Hypertension Son Hypertension Social History Social History Smoking packs per day: 0.5 Smoking cigarettes per day: 10.0 Smoking status: Current every day smoker Tobacco type: cigarettes Alcohol intake: never Substance use: never Substance use type: does not use Lack of Transportation: No Lack of Food: Never True Current Housing: I Have Housing Concerned About Future Housing: No Difficulty Paying Gas/Electric Bills: No Difficulty Paying for Meds: No Currently Unemployed: No Education: High School Diploma/GED Difficulty w/ Childcare or Family Care: No Living arrangements: alone Spiritual care concerns: No Agree to blood products: Yes Meds Home Medications and Allergies Home Medications Medication Instructions Recorded Confirmed Type mecobalamin (vitamin B12) 1,000 1,000 mcg PO QTUTHSA 05/06/22 06/19/24 History mcg chewable tablet citalopram 20 mg tablet 20 mg PO DAILY #90 tabs 11/01/23 06/19/24 Rx atorvastatin 10 mg tablet 10 mg PO DAILY #90 tabs 12/16/23 06/19/24 Rx calcium carb-ergocalciferol (vit 1 tablet PO DAILY 12/16/23 06/19/24 History D2) 500 mg (1,250 mg)-200 unit tablet cyclobenzaprine 10 mg tablet 10 mg PO TID PRN muscle spasm #90 12/16/23 06/19/24 Rx tabs aspirin 81 mg tablet,delayed 81 mg PO HS 02/18/24 06/19/24 History release ondansetron 4 mg disintegrating 4 mg PO Q4H PRN nausea and 04/12/24 06/19/24 Rx tablet vomiting #40 tabs levothyroxine 112 mcg tablet 112 mcg PO DAILY #90 tabs 04/26/24 06/19/24 Rx alprazolam 0.5 mg tablet 0.5 mg PO BID PRN anxiety #180 tabs 05/30/24 06/19/24 Rx albuterol sulfate 90 mcg/actuation 1 puff inhalation Q4H PRN 06/19/24 06/19/24 Rx aerosol inhaler shortness of breath or wheezing #8.5 grams amlodipine 5 mg-valsartan 160 mg 1 tablet PO DAILY #90 tabs 06/19/24 06/19/24 Rx tablet tramadol 50 mg tablet 50 mg PO BID PRN pain #60 tabs 07/03/24 Rx Allergies Allergy/AdvReac Type Severity Reaction Status Date / Time No Known Allergies Allergy Verified 07/24/24 14:05 Vital Signs Vital Signs - 24 hr 07/24/24 14:02 07/24/24 14:44 07/24/24 15:57 Temperature 97.5 F L Pulse Rate 84 73 73 Respiratory Rate 15 19 16 Blood Pressure 154/67 H 141/67 H 145/59 H Pulse Oximetry 95 96 99 Oxygen Delivery Room Air Exam Const: General: cooperative and healthy appearing Resp: Effort & Inspection: normal respiratory effort and able to speak in complete sentences Auscultation: clear to auscultation bilaterally Cardio: Rate: regular rate Rhythm: regular rhythm GI: Inspection: normal to inspection GI Palp: No No hepatosplenomegaly present Auscultation: normal bowel sounds Rectal Exam: deferred Skin: General skin exam: normal color Psych: Appearance: grossly normal Mental Status: mental status grossly normal Results Labs 07/24/24 15:15 07/24/24 15:15 Labs: Short CBC 07/24/24 Range/Units 15:15 WBC 12.1 H (4.5-10.0) K/mm3 Hgb 10.5 L (12.0-15.0) g/dL Hct 32.2 L (37.0-47.0) % Plt Count 454 H (150-375) k/mm3 BMP 07/24/24 15:15 Sodium 136 L Potassium 2.6 L* Chloride 94 L Carbon Dioxide 32 H BUN 28 H Creatinine 0.80 Glucose 99 Calcium 9.0 Cardiac Enzymes 07/24/24 Range/Units 15:15 Troponin I < 0.012 (0.000-0.034) ng/mL Liver Function 07/24/24 Range/Units 15:15 Total Bilirubin 0.4 (0.2-1.3) mg/dL AST 21 (14-36) U/L ALT 10 (6-35) U/L Alkaline Phosphatase 85 (38-126) U/L Albumin 4.2 (3.5-5.1) g/dL
--- NOTE | 2024-07-24 18:00 | P.HP_ITS ---
H&P: HPI History of Present Illness Date/Time: 07/24/24 18:00 Chief Complaint: Weakness nausea and vomiting. Narrative: 69-year-old with history of iron deficiency Anemia follows with Hematology Dr. Leggett, hypertension, hypothyroidism, anxiety, chronic neck and back pain and history of cardiac ablation presents to the hospital with weakness. patient states that at the ended July she was having chest pain and went to the [facility] and had extensive cardiac workup which was negative. She states that she has been taking ibuprofen about 3 times a day for the last month to help with the pain. Patient states that since Wednesday she had severe nausea and vomiting and was unable to tolerate any pills. She was hoping that it would go away or she would feel the see her primary care provider however due to acute pain she came to the hospital. in the ED patient was found to have leukocytosis at 12.1, anemia at 10.5 which is around her baseline of 11, potassium of 2.6. patient has CT of abdomen and pelvis that showed near full-thickness collar button gastric ulcer along the greater curvature of the stomach , which is non perforated at this time. No free air seen on CT. Patient was seen by GI while she was in the emergency room. Plan for patient to be NPO strict and EGD tomorrow morning. Patient got a total of 40 mg IV Protonix, 40 mEq of potassium and a fluid bolus in the ED. vital signs Are stable. Review of Systems Constitutional: Constitutional: Reports no additional constitutional complaints Eyes: Eyes: Reports no additional eye complaints ENT: Reports as per HPI Cardiovascular: Cardiovascular: Reports no additional cardiovascular complaints Respiratory: Respiratory: Reports no additional respiratory complaints Gastrointestinal: Gastrointestinal: Reports nausea and Reports vomiting Comments: Epigastric pain Genitourinary: Genitourinary: Reports no additional female genitourinary complaints Musculoskeletal: Musculoskeletal: Reports no additional musculoskeletal complaints Neurologic: Reports as per HPI Psychiatric: Psychiatric: Reports no additional psychiatric complaints [facility] Past Medical History Medical History Abnormal WBC count Abnormality of right breast on screening mammogram Allergies Anxiety Chronic neck and back pain Dyslipidemia Environmental allergies Essential (primary) hypertension Hypothyroidism Intermittent palpitations Left breast mass Nausea Osteopenia Vitamin B12 deficiency Vitamin D deficiency Surgical History Surgical History H/O neck surgery X3 - 2018, 2015 and 2013 Metal plate in neck History of appendectomy (~1969) History of section, classical (~1976) History of lumbar spinal fusion (~02/2000) Previous back surgery Steel Rods in back Family History Family History Father Hypertension Heart disease Mother Heart disease Hypertension Sibling Hypertension Son Hypertension Social History Social History Smoking packs per day: 0.5 Smoking cigarettes per day: 10.0 Years smoked: 40 Smoking pack-years: 20.00 Smoking status: Current every day smoker Tobacco type: cigarettes Alcohol intake: never Substance use: never Substance use type: does not use Do You Feel Safe in your Home?: Yes Lack of Transportation: No Lack of Food: Never True Current Housing: I Have Housing Concerned About Future Housing: No Difficulty Paying Gas/Electric Bills: No Difficulty Paying for Meds: No Currently Unemployed: No Education: High School Diploma/GED Difficulty w/ Childcare or Family Care: No Living arrangements: alone Spiritual care concerns: No Agree to blood products: Yes Meds Home Medications and Allergies Home Medications Medication Instructions Recorded Confirmed Type mecobalamin (vitamin B12) 1,000 1,000 mcg PO QTUTHSA 05/06/22 07/24/24 History mcg chewable tablet citalopram 20 mg tablet 20 mg PO DAILY #90 tabs 11/01/23 07/24/24 Rx calcium carb-ergocalciferol (vit 1 tablet PO DAILY 12/16/23 07/24/24 History D2) 500 mg (1,250 mg)-200 unit tablet cyclobenzaprine 10 mg tablet 10 mg PO TID PRN muscle spasm #90 12/16/23 07/24/24 Rx tabs aspirin 81 mg tablet,delayed 81 mg PO HS 02/18/24 07/24/24 History release ondansetron 4 mg disintegrating 4 mg PO Q4H PRN nausea and 04/12/24 07/24/24 Rx tablet vomiting #40 tabs levothyroxine 112 mcg tablet 112 mcg PO DAILY #90 tabs 04/26/24 07/24/24 Rx alprazolam 0.5 mg tablet 0.5 mg PO BID PRN anxiety #180 tabs 05/30/24 07/24/24 Rx albuterol sulfate 90 mcg/actuation 1 puff inhalation Q4H PRN 06/19/24 07/24/24 Rx aerosol inhaler shortness of breath or wheezing #8.5 grams amlodipine 5 mg-valsartan 160 mg 1 tablet PO DAILY #90 tabs 06/19/24 07/24/24 Rx tablet tramadol 50 mg tablet 50 mg PO BID PRN pain #60 tabs 07/03/24 07/24/24 Rx atorvastatin 10 mg tablet 10 mg PO HS 07/24/24 07/24/24 History Allergies Allergy/AdvReac Type Severity Reaction Status Date / Time No Known Allergies Allergy Verified 07/24/24 20:27 Vital Signs Vital Signs - 24 hr 07/24/24 14:02 07/24/24 14:44 07/24/24 15:57 Temperature 97.5 F L Pulse Rate 84 73 73 Respiratory Rate 15 19 16 Blood Pressure 154/67 H 141/67 H 145/59 H Pulse Oximetry 95 96 99 Oxygen Delivery Room Air Exam Narrative: General: well appearing, appears stated age. HEENT: normocephalic, atraumatic. Mucous membranes moist. EOMI, PERRLA, bilateral sclera anicteric, no conjunctival injection. Neck supple without JVD, lymphadenopathy, or bruit. Respiratory: clear to ascultation bilaterally. No rales/rhonic/wheezes. Cardiovascular: Regular rate and rhythm, normal S1-S2 upon ascultation. No murmurs, rubs, or clicks. PMI is nondisplaced, capillary refill less than 3 second. Abdomen: Soft, round, no pulsatile masses, nondistended and epigastric area tender to palpation. No rebound, no guarding. No CVA tenderness, no hepatosplenomegaly. Bowel sounds present to all four quadrants. No high pitch or tinkling sounds, resonant to percussion. Extremities: No cyanosis, clubbing, or edema present. Pulses are palpable 2/2. Active ROM to all four extremities. Neuro: Alert and orientated x 4. PERRLA. Cranial nerves 2-12 intact without focal deficit. Skin: Warm, dry, and intact, without rash, erythema, or lesion. Psych: pleasant, cooperative, normal speech, normal affect, no hallucinations, no dysarthia H&P: Results Labs Labs: Short CBC 07/24/24 Range/Units 15:15 WBC 12.1 H (4.5-10.0) K/mm3 Hgb 10.5 L (12.0-15.0) g/dL Hct 32.2 L (37.0-47.0) % Plt Count 454 H (150-375) k/mm3 BMP 07/24/24 15:15 Sodium 136 L Potassium 2.6 L* Chloride 94 L Carbon Dioxide 32 H BUN 28 H Creatinine 0.80 Glucose 99 Calcium 9.0 Cardiac Enzymes 07/24/24 Range/Units 15:15 Troponin I < 0.012 (0.000-0.034) ng/mL Liver Function 07/24/24 Range/Units 15:15 Total Bilirubin 0.4 (0.2-1.3) mg/dL AST 21 (14-36) U/L ALT 10 (6-35) U/L Alkaline Phosphatase 85 (38-126) U/L Albumin 4.2 (3.5-5.1) g/dL Assessment and Plan Assessment and plan (1) Gastric ulcer: Code(s): K25.9 - Gastric ulcer, unspecified as acute or chronic, without hemorrhage or perforation Status: Acute Assessment and Plan: GI consulted strict NPO plan for EGD tomorrow patient educated on signs and symptoms of acute perforation IV Protonix no NSAIDs (2) Essential (primary) hypertension: Code(s): I10 - Essential (primary) hypertension Status: Acute Assessment and Plan: currently holding home medications p.r.n. hydralazine added (3) Chronic neck and back pain: Code(s): M54.2 - Cervicalgia; M54.9 - Dorsalgia, unspecified; G89.29 - Other chronic pain Status: Acute Assessment and Plan: holding home medications p.r.n. morphine (4) Iron deficiency anemia: Qualifiers: Iron deficiency anemia type: unspecified iron deficiency Qualified Code(s): D50.9 - Iron deficiency anemia, unspecified Code(s): D50.9 - Iron deficiency anemia, unspecified Status: Acute Assessment and Plan: patient states that she does not tolerate the oral iron, and does not qualify for IV infusions per insurance patient educated on iron rich diet and multivitamins (5) Tobacco abuse: Code(s): Z72.0 - Tobacco use Status: Acute Assessment and Plan: patient educated on wound healing nicotine use, cessation counseling over 5 minutes nicotine patch (6) Hypothyroidism: Qualifiers: Hypothyroidism type: acquired Qualified Code(s): E03.9 - Hypothyroidism, unspecified Code(s): E03.9 - Hypothyroidism, unspecified Status: Acute Assessment and Plan: hold home meds for now Quality VTE Prophylaxis VTE prophylaxis: mechanical ordered If No VTE Prophylaxis Answer both mechanical and pharmacologic: Reason no pharmacologic proph: medical contraindication active bleeding/bleeding risk Hospitalist MIPS Advance Care Plan I have confirmed that the patient's Advanced Care Plan is present, code status is documented, or surrogate decision maker is listed in patient medical record.: Yes Medication Reconciliation I have utilized all available resources to obtain, update and review the patients current medications (includes all prescriptions, OTC, herbals, cannabis, and nutritional supplements).: Yes
[2024-07-24] MEDS: POTASSIUM CHLORIDE INJ 40 MEQ in SODIUM CHLORIDE 0.9% IV 500 ML 130 MEQ IVPB (18:18)
[2024-07-24 18:25] VITALS: BP 139/70; PULSE 79; RESP 17; TEMP 36.7; O2SAT 93
[2024-07-24 18:34] LABS: Add Urine Microscopic? YES; Appearance Urine Clear (Clear); Bacteria Urine None Seen /hpf; Bilirubin Urine Negative (Negative); Blood Urine Negative (Negative); Color Urine Yellow (Yellow); Glucose Urine UA Negative (Negative); Ketones Urine 1+ mg/dL (Negative); Leukocyte Esterase Ur Negative LEU/UL (Negative); Nitrate Urine Negative (Negative); Non Pathogenic Casts 0-2; Protein Urine Trace mg/dL (Negative); RBC Urine 0-2 /hpf (0-2); Specific Grav Ur > 1.045 (1.001-1.035); Squamous Epithelial Cell Urine None Seen /hpf (Few); Urobilinogen Urine 0.2 mg/dL (<2.0); WBC Urine 0-5 /hpf (0-3); pH Urine 5.5 (5.0-9.0)
--- NOTE | 2024-07-24 19:00 | ADMGEN ---
This patient, Keren Amin, was admitted to [facility] Surg Room 316-01. Patient/family oriented to hospital policies and general routines including ID bracelet, bed and alarms, visiting hours, pain management, procedures, bathroom and other care routines, personal items, smoking policy, room service/diet, and visiting hours. Information on how to activate the Rapid Response Team has been discussed. Patient/Family are encouraged to report perceived risks to care and to ask questions if they do not understand what they are told or what they should do.
[2024-07-24 20:14] VITALS: BMI 22.6
[2024-07-24 20:22] VITALS: BP 125/52; PULSE 70; RESP 18; TEMP 36.4; O2SAT 95
[2024-07-24] MEDS: MORPHINE SULFATE (*CRX) 2 MG/ML INJ IV PUSH (21:04)
[2024-07-24] MEDS: LACTATED RINGERS 1,000 ML 125 ML IV CONT (23:15)
[2024-07-25] VITALS (13 sets, daily range): BP systolic 124–159; BP diastolic 49–69; PULSE 64–97; RESP 17–22; TEMP 36.4–36.6; O2SAT 92–100; BMI 22.6
[2024-07-25] MEDS: MORPHINE SULFATE (*CRX) 2 MG/ML INJ IV PUSH ×2 (01:22→11:48)
[2024-07-25] MEDS: LACTATED RINGERS 1,000 ML 125 ML IV CONT ×2 (07:21→10:08)
[2024-07-25 08:02] LABS: Basophils Percent Auto 0.5 % (0.2-1.2); Eosinophils Absolute Auto 0.1 K/mm3 (0-0.3); Eosinophils Percent Auto 0.6 % (0-4.4); Hematocrit 29.1 % (37.0-47.0); Hemoglobin 9.1 g/dL (12.0-15.0); Immature Granulocyte Absolute 0.05 K/mm3 (0.00-0.031); Immature Granulocyte Percent A 0.6 % (0-0.5); Lymphocytes Percent Auto 25.4 % (18.3-44.2); Mean Corpuscular HGB Conc 31.3 g/dl (32-36); Mean Corpuscular Hemoglobin 27.6 pg (26-34); Mean Corpuscular Volume 88.2 fl (80-100); Mean Platelet Volume 10.1 fl (7.4-10.4); Monocytes Absolute Auto 0.7 K/mm3 (0.1-0.6); Monocytes Percent Auto 8.8 % (2.6-8.5); Neutrophils Absolute Auto 5.3 K/mm3 (1.3-6.7); Neutrophils Percent Auto 64.1 % (45.5-73.1); Platelet Count Result 386 k/mm3 (150-375); White Blood Count 8.3 K/mm3 (4.5-10.0)
[2024-07-25 08:04] LABS: Alanine Aminotransferase 8 U/L (6-35); Albumin Level 3.5 g/dL (3.5-5.1); Alkaline Phosphatase 71 U/L (38-126); Anion Gap 8 mmol/L (4-12); Aspartate Amino Transferase 18 U/L (14-36); Bilirubin,Total 0.2 mg/dL (0.2-1.3); Blood Urea Nitrogen 19 mg/dL (7-17); Calcium 8.3 mg/dL (8.4-10.2); Carbon Dioxide 30 mmol/L (22-30); Chloride 102 mmol/L (98-107); Estimated CRCL calculation 73 ml/min; Estimated Glomerular Filt Rate > 60; Glucose 73 mg/dL (65-110); Magnesium 1.9 mg/dL (1.6-2.3); Phosphorus 2.5 mg/dL (2.5-4.5); Potassium 3.8 mmol/L (3.4-5.0); Sodium 140 mmol/L (137-145)
[2024-07-25] MEDS: PANTOPRAZOLE SODIUM IV 40 MG VIAL IV PUSH (08:21)
[2024-07-25] MEDS: ONDANSETRON INJ 4 MG/2 ML VIAL IV PUSH (08:21)
[2024-07-25] MEDS: NICOTINE (*PBKC) 14 MG PATCH 1 PATCH TRANSDERM (08:21)
[2024-07-25] MEDS: LACTATED RINGERS 1,000 ML 150 ML IV CONT (10:00)
--- NOTE | 2024-07-25 10:10 | PC.NURSE ---
To GI Lab per wheelchair, IV site patent. 20 RAC.
--- NOTE | 2024-07-25 10:49 | WPDANESEPPF ---
Anes - Initial Pre Proc Eval Procedure: Operation Date: 07/25/24 11:30 Proposed Procedures p Esophagogastroduodenoscopy - Mario Oreilly MD Date/Time: 07/25/24 10:49 Surgeon: Anitra Waite APRN Pre Op Diagnosis: Hypokalemia, Gastric ulcer Patient Data Age: 69 Gender: F Height: 1.7 m Weight: 65.6 kg Last Vital Signs Temp 36.6 C 07/25/24 10:00 Pulse 83 07/25/24 10:00 Resp 20 07/25/24 10:00 BP 155/69 H 07/25/24 10:00 Pulse Ox 98 07/25/24 10:00 O2 Del Method Room Air 07/25/24 10:00 Allergies Allergy/AdvReac Type Severity Reaction Status Date / Time No Known Allergies Allergy Verified 07/24/24 20:27 Home Medications Medication Instructions Recorded Confirmed Type mecobalamin (vitamin B12) 1,000 1,000 mcg PO QTUTHSA 05/06/22 07/24/24 History mcg chewable tablet citalopram 20 mg tablet 20 mg PO DAILY #90 tabs 11/01/23 07/24/24 Rx calcium carb-ergocalciferol (vit 1 tablet PO DAILY 12/16/23 07/24/24 History D2) 500 mg (1,250 mg)-200 unit tablet cyclobenzaprine 10 mg tablet 10 mg PO TID PRN muscle spasm #90 12/16/23 07/24/24 Rx tabs aspirin 81 mg tablet,delayed 81 mg PO HS 02/18/24 07/24/24 History release ondansetron 4 mg disintegrating 4 mg PO Q4H PRN nausea and 04/12/24 07/24/24 Rx tablet vomiting #40 tabs levothyroxine 112 mcg tablet 112 mcg PO DAILY #90 tabs 04/26/24 07/24/24 Rx alprazolam 0.5 mg tablet 0.5 mg PO BID PRN anxiety #180 tabs 05/30/24 07/24/24 Rx albuterol sulfate 90 mcg/actuation 1 puff inhalation Q4H PRN 06/19/24 07/24/24 Rx aerosol inhaler shortness of breath or wheezing #8.5 grams amlodipine 5 mg-valsartan 160 mg 1 tablet PO DAILY #90 tabs 06/19/24 07/24/24 Rx tablet tramadol 50 mg tablet 50 mg PO BID PRN pain #60 tabs 07/03/24 07/24/24 Rx atorvastatin 10 mg tablet 10 mg PO HS 07/24/24 07/24/24 History Laboratory Tests 07/24/24 07/24/24 07/25/24 15:15 18:24 07:05 WBC 12.1 H K/mm3 8.3 K/mm3 (4.5-10.0) (4.5-10.0) RBC 3.76 L M/mm3 3.30 L M/mm3 (4.2-5.4) (4.2-5.4) Hgb 10.5 L g/dL 9.1 L g/dL (12.0-15.0) (12.0-15.0) Hct 32.2 L % 29.1 L % (37.0-47.0) (37.0-47.0) MCV 85.6 fl 88.2 fl (80-100) (80-100) MCH 27.9 pg 27.6 pg (26-34) (26-34) MCHC 32.6 g/dl 31.3 L g/dl (32-36) (32-36) RDW 14.8 H % 15.0 H % (11.5-14.5) (11.5-14.5) Plt Count 454 H k/mm3 386 H k/mm3 (150-375) (150-375) MPV 9.9 fl 10.1 fl (7.4-10.4) (7.4-10.4) Immature Gran % (Auto) 0.5 % 0.6 H % (0-0.5) (0-0.5) Neut % (Auto) 81.5 H % 64.1 % (45.5-73.1) (45.5-73.1) Lymph % (Auto) 10.1 L % 25.4 % (18.3-44.2) (18.3-44.2) [place] % (Auto) 7.7 % 8.8 H % (2.6-8.5) (2.6-8.5) Eos % (Auto) 0.0 % 0.6 % (0-4.4) (0-4.4) Baso % (Auto) 0.2 % 0.5 % (0.2-1.2) (0.2-1.2) Lymph # (Auto) 1.22 K/mm3 2.10 K/mm3 (0.9-3.2) (0.9-3.2) [place] # (Auto) 0.9 H K/mm3 0.7 H K/mm3 (0.1-0.6) (0.1-0.6) Eos # (Auto) 0.0 K/mm3 0.1 K/mm3 (0-0.3) (0-0.3) Baso # (Auto) 0.0 K/mm3 0.0 K/mm3 (0.0-0.1) (0.0-0.1) Abs Immat Gran (auto) 0.06 H K/mm3 0.05 H K/mm3 (0.00-0.031) (0.00-0.031) Absolute Neuts (auto) 9.9 H K/mm3 5.3 K/mm3 (1.3-6.7) (1.3-6.7) Absolute Nucleated RBC 0.000 K/mm3 0.000 K/mm3 (0.0-0.012) (0.0-0.012) Nucleated RBC % 0.0 % 0.0 % (0.0-0.2) (0.0-0.2) PT 15.0 H Seconds (11.1-14.7) INR 1.2 APTT 32.9 Seconds (22.3-36.8) Sodium 136 L mmol/L 140 mmol/L (137-145) (137-145) Potassium 2.6 L* mmol/L 3.8 mmol/L (3.4-5.0) (3.4-5.0) Chloride 94 L mmol/L 102 mmol/L (98-107) (98-107) Carbon Dioxide 32 H mmol/L 30 mmol/L (22-30) (22-30) Anion Gap 10 mmol/L 8 mmol/L (4-12) (4-12) BUN 28 H mg/dL 19 H mg/dL (7-17) (7-17) Creatinine 0.80 mg/dL 0.60 L mg/dL (0.7-1.0) (0.7-1.0) Estim Creat Clear Calc 56 ml/min 73 ml/min Estimated GFR > 60 > 60 (59 - ) (59 - ) Glucose 99 mg/dL 73 mg/dL (65-110) (65-110) Calcium 9.0 mg/dL 8.3 L mg/dL (8.4-10.2) (8.4-10.2) Phosphorus 2.5 mg/dL (2.5-4.5) Magnesium 1.9 mg/dL (1.6-2.3) Total Bilirubin 0.4 mg/dL 0.2 mg/dL (0.2-1.3) (0.2-1.3) AST 21 U/L 18 U/L (14-36) (14-36) ALT 10 U/L 8 U/L (6-35) (6-35) Alkaline Phosphatase 85 U/L 71 U/L (38-126) (38-126) Troponin I < 0.012 ng/mL (0.000-0.034) Total Protein 8.0 g/dL 7.0 g/dL (6.3-8.2) (6.3-8.2) Albumin 4.2 g/dL 3.5 g/dL (3.5-5.1) (3.5-5.1) Lipase 60 U/L (23-300) Urine Color Yellow (Yellow) Urine Appearance Clear (Clear) Urine pH 5.5 (5.0-9.0) Ur Specific [place] > 1.045 H (1.001-1.035) Urine Protein Trace mg/dL (Negative) Urine Glucose (UA) Negative mg/dL (Negative) Urine Ketones 1+ H mg/dL (Negative) Ur Blood (Man) Negative (Negative) Urine Nitrate Negative (Negative) Urine Bilirubin Negative (Negative) Urine Urobilinogen 0.2 mg/dL (<2.0) Leukocyte Esterase Rfl Negative TRACY/UL (Negative) Urine RBC 0-2 /hpf (0-2) Urine WBC 0-5 /hpf (0-3) Ur Squamous Epith Cells None seen /hpf (Few) Urine Bacteria None seen /hpf Urine Casts 0-2 Patient hx anesthesia problems: none Family hx anesthesia problems: none Results Review: All pre-operative results and documents have been reviewed as part of the pre-operative evaluation. [facility]LY [facility] Past Medical History Medical History Abnormal WBC count Abnormality of right breast on screening mammogram Allergies Anxiety Chronic neck and back pain Dyslipidemia Environmental allergies Essential (primary) hypertension Hypothyroidism Intermittent palpitations Left breast mass Nausea Osteopenia Vitamin B12 deficiency Vitamin D deficiency Surgical History Surgical History H/O neck surgery X3 - 2018, 2015 and 2013 Metal plate in neck History of appendectomy (~1969) History of section, classical (~1976) History of lumbar spinal fusion (~02/2000) Previous back surgery Steel Rods in back Family History Family History Father Hypertension Heart disease Mother Heart disease Hypertension Sibling Hypertension Son Hypertension Social History Social History Smoking packs per day: 0.5 Smoking cigarettes per day: 10.0 Years smoked: 40 Smoking pack-years: 20.00 Smoking status: Current every day smoker Tobacco type: cigarettes Alcohol intake: never Substance use: never Substance use type: does not use Do You Feel Safe in your Home?: Yes Lack of Transportation: No Lack of Food: Never True Current Housing: I Have Housing Concerned About Future Housing: No Difficulty Paying Gas/Electric Bills: No Difficulty Paying for Meds: No Currently Unemployed: No Education: High School Diploma/GED Difficulty w/ Childcare or Family Care: No Living arrangements: alone Spiritual care concerns: No Agree to blood products: Yes Anes - Eval Final PreProcedure Day of Procedure 07/25/24 10:49 Patient weight: normal Heart: regular rate and rhythm Lungs: clear to auscultation Airway: Mallampati scale class II Neurological: alert and oriented Last oral intake: >/= 8 hours ASA classification: III Emergent: no Anesthetic plan: proceed Anesthesia type and monitoring: general GIVS Results Review: All pre-operative results and documents have been reviewed as part of the pre-operative evaluation. Informed Consent: The patient's anesthetic plan and its attendant risks and benefits were discussed with the patient/family/POA. Questions were solicited and answers provided to the satisfaction of the patient/family/POA.
--- NOTE | 2024-07-25 11:20 | PC.NURSE ---
Returned from GI Lab.
[2024-07-25 12:43] LABS: HPYLORIRESULT Negative (Negative)
--- NOTE | 2024-07-25 13:37 | P.DS_ITS ---
DS: Admitting Diagnosis Discharge Date 07/25/2024 Admitting Diagnosis Gastric ulcer DS: Discharge Diagnosis Discharge Diagnosis (1) Gastric ulcer: Code(s): K25.9 - Gastric ulcer, unspecified as acute or chronic, without hemorrhage or perforation Status: Acute (2) Essential (primary) hypertension: Code(s): I10 - Essential (primary) hypertension Status: Acute (3) Chronic neck and back pain: Code(s): M54.2 - Cervicalgia; M54.9 - Dorsalgia, unspecified; G89.29 - Other chronic pain Status: Acute (4) Iron deficiency anemia: Qualifiers: Iron deficiency anemia type: unspecified iron deficiency Qualified Code(s): D50.9 - Iron deficiency anemia, unspecified Code(s): D50.9 - Iron deficiency anemia, unspecified Status: Acute (5) Tobacco abuse: Code(s): Z72.0 - Tobacco use Status: Acute (6) Hypothyroidism: Qualifiers: Hypothyroidism type: acquired Qualified Code(s): E03.9 - Hypothyroidism, unspecified Code(s): E03.9 - Hypothyroidism, unspecified Status: Acute Plan Disposition: Discharged home DS: Summary Hospital Course Reason for hospitalization: Gastric ulcer Hospital Course: Patient was a 69-year-old female who was admitted to the medical unit for gastric ulcer disease after excessive use of NSAIDs. Patient had initially came to the emergency department with complaints of weakness, nausea and vomiting. Patient reported she does have a history of anemia which she follows with Dr. Oleksandr walls. Initial findings in the emergency room showed leukocytosis, anemia and CT scan with full-thickness collar button gastric ulcer along the greater curvature of the stomach. Patient was placed NPO and Protonix b.i.d. initiated she was also given IV fluids with a consult to GI patient was kept NPO overnight an EGD was completed the next morning. Patient was found to have gastric ulcer disease no active bleeding. Patient tolerating oral intake after procedure was educated on the need for pantoprazole b.i.d. at discharge. Patient is to follow-up with GI in clinic and schedule a follow-up EGD in 4 months. Patient stated she has been using NSAIDs for lower leg pain will start on p.r.n. gabapentin for relief she can follow-up with her primary reports chronic leg pain following back surgery. Patient feeling better after procedure educated on diet and non pharmaceutical stress reduction techniques. Patient discharged home. Status at Discharge Functional status at discharge: independent ambulation Overall status at discharge: patient is back to baseline Time Spent with Patient Time attestation: Total time spent providing and/or coordinating discharge services: Time spent: Greater than 30 minutes Exam Narrative: Physical Exam: * GENERAL: Alert and oriented x 3. No acute distress. * EYES: EOMI. No scleral icterus. PERRLA. * HEENT: Moist mucous membranes. * LUNGS: Clear to auscultation bilaterally. No accessory muscle use. * CARDIOVASCULAR: Regular rate and rhythm. No murmur. No JVD. S1-S2 * ABDOMEN: Soft, non tenderness and non-distended. No palpable masses. * EXTREMITIES: No edema. Non-tender * SKIN: No rashes or lesions. Skin warm, dry. * NEUROLOGIC: No focal neurological deficits. CN II-XII grossly intact * PSYCHIATRIC: Appropriate mood and affect. Good judgement and insight. DS: Data Data Completed and Pending Pending studies at discharge: Pending at discharge 07/25/24 11:04 Surgical [PTH] Routine Labs on day of discharge: Labs from last 24 hours 07/25/24 07/25/24 07/24/24 12:01 07:05 18:24 WBC 8.3 RBC 3.30 L Hgb 9.1 L Hct 29.1 L MCV 88.2 MCH 27.6 MCHC 31.3 L RDW 15.0 H Plt Count 386 H MPV 10.1 Immature Gran % (Auto) 0.6 H Neut % (Auto) 64.1 Lymph % (Auto) 25.4 [place] % (Auto) 8.8 H Eos % (Auto) 0.6 Baso % (Auto) 0.5 Lymph # (Auto) 2.10 [place] # (Auto) 0.7 H Eos # (Auto) 0.1 Baso # (Auto) 0.0 Abs Immat Gran (auto) 0.05 H Absolute Neuts (auto) 5.3 Absolute Nucleated RBC 0.000 Nucleated RBC % 0.0 PT INR APTT Sodium 140 Potassium 3.8 Chloride 102 Carbon Dioxide 30 Anion Gap 8 BUN 19 H Creatinine 0.60 L Estim Creat Clear Calc 73 Estimated GFR > 60 Glucose 73 Calcium 8.3 L Phosphorus 2.5 Magnesium 1.9 Total Bilirubin 0.2 AST 18 ALT 8 Alkaline Phosphatase 71 Troponin I Total Protein 7.0 Albumin 3.5 Lipase Urine Color Yellow Urine Appearance Clear Urine pH 5.5 Ur Specific [place] > 1.045 H Urine Protein Trace Urine Glucose (UA) Negative Urine Ketones 1+ H Ur Blood (Man) Negative Urine Nitrate Negative Urine Bilirubin Negative Urine Urobilinogen 0.2 Leukocyte Esterase Rfl Negative Urine RBC 0-2 Urine WBC 0-5 Ur Squamous Epith Cells None seen Urine Bacteria None seen Urine Casts 0-2 POC H. pylori Urease Negative 07/24/24 15:15 WBC 12.1 H RBC 3.76 L Hgb 10.5 L Hct 32.2 L MCV 85.6 MCH 27.9 MCHC 32.6 RDW 14.8 H Plt Count 454 H MPV 9.9 Immature Gran % (Auto) 0.5 Neut % (Auto) 81.5 H Lymph % (Auto) 10.1 L [place] % (Auto) 7.7 Eos % (Auto) 0.0 Baso % (Auto) 0.2 Lymph # (Auto) 1.22 [place] # (Auto) 0.9 H Eos # (Auto) 0.0 Baso # (Auto) 0.0 Abs Immat Gran (auto) 0.06 H Absolute Neuts (auto) 9.9 H Absolute Nucleated RBC 0.000 Nucleated RBC % 0.0 PT 15.0 H INR 1.2 APTT 32.9 Sodium 136 L Potassium 2.6 L* Chloride 94 L Carbon Dioxide 32 H Anion Gap 10 BUN 28 H Creatinine 0.80 Estim Creat Clear Calc 56 Estimated GFR > 60 Glucose 99 Calcium 9.0 Phosphorus Magnesium Total Bilirubin 0.4 AST 21 ALT 10 Alkaline Phosphatase 85 Troponin I < 0.012 Total Protein 8.0 Albumin 4.2 Lipase 60 Urine Color Urine Appearance Urine pH Ur Specific [place] Urine Protein Urine Glucose (UA) Urine Ketones Ur Blood (Man) Urine Nitrate Urine Bilirubin Urine Urobilinogen Leukocyte Esterase Rfl Urine RBC Urine WBC Ur Squamous Epith Cells Urine Bacteria Urine Casts POC H. pylori Urease Imaging Radiologist's impression: FINDINGS: Mild reticular opacities and cystic lung disease with dependent predominance at the periphery of the lower lungs which could represent either mild atelectasis superimposed over emphysema or usual interstitial pneumonia (UIP) pattern chronic interstitial lung disease. Mild cardiomegaly. No pericardial or pleural effusion. Liver, gallbladder, pancreas, bilateral adrenal glands and right kidney are normal. 4 mm cyst at the lower pole of the left kidney. Numerous splenic calcific lesions consistent with old granulomatous disease. There is prominent wall thickening and surrounding inflammatory stranding along the inner curvature of the stomach surrounding a large collar button gastric ulcer which appears to penetrate to the level of the serosal surface. No free intraperitoneal gas to suggest full-thickness perforation. Single diverticulum along the sigmoid colon without adjacent inflammatory stranding to suggest diverticulitis. No bowel obstruction. The appendix is not visualized. No pericecal inflammatory change to suggest acute appendicitis. Bladder, uterus and bilateral adnexa are unremarkable. No abscess or free intraperineal fluid. No pathologically enlarged abdominal or pelvic lymphadenopathy. Instrumented L5-S1 anterior and posterior spinal fusion with interbody bone graft cage and bilateral vertical jennifer and pedicle screw fixation. IMPRESSION: 1. Near full-thickness collar button gastric ulcer along the greater curvature of the stomach. Discharge Plan Discharge Attending physician on discharge: Tha Oliva Consulting providers: Enrrique Medrano Discharging Clinician: Anitra Waite Anticipated Discharge Date/Time: 07/25/24 13:31 Patient Disposition: Home, Self-Care Activity: may shower and as tolerated Diet: as tolerated, bland and other - see discharge instructions Discharge Instructions: Your being discharged to home following the treatment a gastric ulcer at this time I will prescribe pantoprazole to be taken twice a day as well as recommend it stopping the use of NSAIDs. Diet can be advanced as tolerated. GI would like a follow-up appointment in plan for follow-up EGD in 4 months for resolutio n. If symptoms return persist or worsen please seek medical attention. Recommend a follow-up with primary care physician in 2-4 weeks. Attached I have provided information on gastric ulcers please review for education and diet How can you care for yourself at home? ? Keep track of any new symptoms or changes in your symptoms. ? Rest until you feel better. ? Be safe with medicines. Take your medicines exactly as prescribed. Call your doctor if you think you are having a problem with your medicine. ? Do not drive after taking a prescription pain medicine. ? Ensure to follow-up with primary care physician as indicated and provide updated medication list provided to you at discharge. When should you call for help? Call 911 anytime you think you may need emergency care. For example, call if: ? You passed out (lost consciousness). Call your doctor now or seek immediate medical care if: ? You have new symptoms like fever, difficulty breathing, Chest pain, vomiting, or rash. ? You have new or different pain. ? You are confused and are having trouble thinking clearly. ? Your symptoms are getting worse. Watch closely for changes in your health, and be sure to contact your doctor if: ? You do not get better as expected. Patient Instructions: Antibiotic Form, Peptic Ulcer (DC), Diet for Stomach Ulcers and Gastritis (ED), Pain Management (DC), Safe Use of NSAIDs (DC) Patient Language: Armenian Stand Alone Forms: General Discharge Information Follow-up/Referrals: Patrick Christy MD [Primary Care Provider] - 3 Weeks Enrrique Medrano MD [Physician] - Call for Appointment (4 month follow-up EGD) Discharge Medications: New pantoprazole 40 mg tablet,delayed release (DR/EC) 40 mg PO BID Qty: 60 0RF gabapentin 100 mg capsule 100 mg PO BID PRN (Reason: leg pain) Qty: 60 0RF Continued amlodipine-valsartan 5-160 mg tablet 1 tablet PO DAILY Qty: 90 3RF albuterol sulfate 90 mcg/actuation HFA aerosol inhaler 1 puff inhalation Q4H PRN (Reason: shortness of breath or wheezing) Qty: 8.5 1RF mecobalamin (vitamin B12) 1,000 mcg tablet,chewable 1,000 mcg PO QTUTHSA calcium carbonate-vitamin D2 500 mg(1,250mg) -200 unit tablet 1 tablet PO DAILY cyclobenzaprine 10 mg tablet 10 mg PO TID PRN (Reason: muscle spasm) Qty: 90 0RF aspirin 81 mg tablet,delayed release (DR/EC) 81 mg PO HS ondansetron 4 mg tablet,disintegrating 4 mg PO Q4H PRN (Reason: nausea and vomiting) Qty: 40 2RF atorvastatin 10 mg tablet 10 mg PO HS citalopram 20 mg tablet 20 mg PO DAILY Qty: 90 1RF levothyroxine 112 mcg tablet 112 mcg PO DAILY Qty: 90 1RF alprazolam 0.5 mg tablet 0.5 mg PO BID PRN (Reason: anxiety) Qty: 180 0RF tramadol 50 mg tablet 50 mg PO BID PRN (Reason: pain) Qty: 60 1RF Date of admission: 07/24/24 17:26 Primary Care Provider: Patrick Christy Admitting Provider: Mary Myers Attending physician on admission: Anitra Waite Condition: Stable Quality -Patient's previous records reviewed on admission -ER notes reviewed in detail on admission -discussed all findings and current treatment plan with patient/Family/POA -Consultations reviewed for recommendations -Patient's disposition for safe discharge discussed with dependency case manager Dictation performed by [employer] direct speech recognition software, therefore escrow manager variants and typographical errors may occur. Hospitalist MIPS Heart Failure (Exclusion) Patient has history of Heart Transplant or Left Ventricular Assistive Device?: No IF YES, STOP HERE Heart Failure (Qualifier) Patient has current or prior documentation of LVEF less than or equal to 40%, or mod/servere depressed LVSF?: No IF NO, STOP HERE
== END 2024-07-25 18:00 | disposition home or self-care (01) | DRG 384 ==
LOC: ANHED 15:03 → ANH3MEDSUR 18:49
PROVIDERS: Internal Medicine Gastroenterology; Admitting Provider Hospitalist; Emergency Provider General Practice; PCP Family Medicine; Visit Provider Nurse Practitioner Family
PROC: 0DJ08ZZ Inspection of Upper Intestinal Tract, Via Natural or Artificial Opening Endoscopic (ICD-10-PCS; CPT 43235; principal; 2024-07-25 11:30)
DX: K25.9 Gastric ulcer, unspecified as acute or chronic, without hemorrhage or perforation (principal); D50.9 Iron deficiency anemia, unspecified; I10 Essential (primary) hypertension; I25.10 Atherosclerotic heart disease of native coronary artery without angina pectoris; E78.5 Hyperlipidemia, unspecified; E03.9 Hypothyroidism, unspecified; E53.8 Deficiency of other specified B group vitamins; E55.9 Vitamin D deficiency, unspecified; M85.80 Other specified disorders of bone density and structure, unspecified site; M54.2 Cervicalgia; M54.9 Dorsalgia, unspecified; G89.29 Other chronic pain; F41.9 Anxiety disorder, unspecified; F17.210 Nicotine dependence, cigarettes, uncomplicated; Z98.1 Arthrodesis status; Z79.82 Long term (current) use of aspirin
CPT/HCPCS: 36415; 74177; 80053; 81001; 83690; 83735; 84100; 84484; 85025; 85610; 85730; 87081; 88305; 88313; 88342; 93005; 96361; 96374; 96375; 99285; A9270; J2270; J2405; J2470; J2704; J3480; J7030; J7040; J7120; Q9967

== ENCOUNTER 2024-08-15 09:31 | Outpatient (CLI) | payer MEDICARE, SELFPAY ==
[2024-08-15 13:28] LABS: Alanine Aminotransferase 13 U/L (6-35); Albumin Level 4.5 g/dL (3.5-5.1); Alkaline Phosphatase 73 U/L (38-126); Anion Gap 6 mmol/L (4-12); Aspartate Amino Transferase 33 U/L (14-36); Bilirubin,Total 0.3 mg/dL (0.2-1.3); Blood Urea Nitrogen 13 mg/dL (7-17); Calcium 9.5 mg/dL (8.4-10.2); Carbon Dioxide 29 mmol/L (22-30); Chloride 102 mmol/L (98-107); Cholesterol 146 mg/dL (0-200); Estimated Glomerular Filt Rate > 60; Glucose 84 mg/dL (65-110); HDL Direct 46 mg/dL; Potassium 3.6 mmol/L (3.4-5.0); Sodium 137 mmol/L (137-145); Triglycerides 121 mg/dL (<150)
[2024-08-15 13:39] LABS: LDL Cholesterol Direct 60 mg/dL
[2024-08-15 14:30] LABS: Hepatitis C Virus Antibody Negative (Negative)
[2024-08-15 14:52] LABS: Free T4 Free Thyroxine 1.35 ng/mL (0.78-2.19); Vitamin D 25 Hydroxy 27.2 ng/mL
== END 2024-08-15 09:32 | disposition home or self-care (01) ==
LOC: ANHGOSHLAB 09:33
PROVIDERS: PCP Family Medicine; Visit Provider Nurse Practitioner Family
DX: E03.9 Hypothyroidism, unspecified (principal); E78.5 Hyperlipidemia, unspecified; I10 Essential (primary) hypertension; E55.9 Vitamin D deficiency, unspecified; Z11.59 Encounter for screening for other viral diseases
CPT/HCPCS: 36415; 80053; 80061; 82306; 84439; 84443; 86803

== ENCOUNTER 2024-08-15 09:49 | Outpatient (CLI) | payer MEDICARE, SELFPAY ==
--- NOTE | ~2024-08-15 | XR_ITS ---
Hell:[id number]. VIEWS LUMBAR SPINE Ordering provider: Zahida Morrow NP History: . Low back pain no injury . Comparison: None. FINDINGS: VERTEBRAL BODIES: No visible fracture or subluxation. DISK SPACES: Narrowing of the disc L2-L3, L3-L4 and L4-L5. SOFT TISSUES: Atherosclerotic changes of the aorta. IMPRESSION: No acute osseous abnormality lumbar spine. Multilevel degenerative disc disease. Reviewed, dictated and finalized at location A. LOADER
== END 2024-08-15 09:50 | disposition home or self-care (01) ==
LOC: GOSHIMG 09:49
PROVIDERS: PCP Family Medicine; Visit Provider Nurse Practitioner Family
DX: M51.369 Other intervertebral disc degeneration, lumbar region without mention of lumbar back pain or lower extremity pain (principal)
CPT/HCPCS: 72100

== ENCOUNTER 2024-09-15 07:44 | Outpatient (CLI) | payer MEDICARE, SELFPAY ==
--- NOTE | ~2024-09-15 | MR_ITS ---
EXAMINATION: MR lumbar spine wo/w con DATE: 09/15/2024 08:47 INDICATION: Lumbar radicular pain TECHNIQUE: Magnetic resonance imaging (MRI) of the lumbar spine was performed without intravenous con trast. Sequences included sagittal T2-weighted FSE, sagittal T2-weighted FS FSE, sagittal T1-weighted FSE, and axial T2-weighted FSE. COMPARISON: None FINDINGS: Partial L5 laminectomy. Combined instrumented L5-S1 anterior and posterior spinal fusion with interbo dy bone graft cage and bilateral vertical jennifer and pedicle screw fixation. 2 mm retrolisthesis L3 on L 4. Vertebral body heights are normal. Normal marrow signal. Mild to moderate disc height loss at L4- L5 and mild disc height loss at T11-T12 through L1-L2 and L3-L4. There are annular fissures at L1-L2 and L4-L5. The conus medullaris terminates at L1-L2. There is normal signal in the caudal spinal cord . There are some fatty atrophy of the paraspinal musculature from L4-L5 likely related to prior surge ry. The following disc levels are specifically discussed: T12-L1: Disc is bulging. There is moderate bilateral facet joint osteoarthritis. There is no neural f oraminal stenosis. There is mild central canal stenosis. L1-L2: Disc is bulging. There is moderate bilateral facet joint osteoarthritis. There is mild bilater al neural foraminal stenosis. There is mild central canal stenosis. L2-L3: Disc is mildly bulging. There is mild left and moderate right facet joint osteoarthritis. Ther e is mild bilateral neural foraminal stenosis. There is no central canal stenosis. L3-L4: Disc is bulging. There is hypertrophy of the ligamentum flavum. There is severe bilateral fac et joint osteoarthritis. There is mild bilateral neural foraminal stenosis. There is mild central can al stenosis. L4-L5: Disc is bulging. There is hypertrophy of the ligamentum flavum. There is severe bilateral fac et joint osteoarthritis. There are small bilateral facet joint effusions with AP separation of the ar ticular surfaces of the facet joints measuring 2 mm on the left and 3-4 mm on the right which suggest s a potential for similar degree of anterolisthesis of L4 on L5. There is mild to moderate bilateral neural foraminal stenosis. There is moderate central canal stenosis. L5-S1: The disc space and facet joints are fused. There is mild bilateral neural foraminal stenosis. Posterior decompression with no no central canal stenosis. IMPRESSION: 1. Moderate lumbar spondylosis with postoperative changes including partial L5 laminectomy and combin ed instrumented L5-S1 anterior and posterior spinal fusion. 2. Severe facet osteoarthritis at L4-L5 with 2 mm left-sided and 3-4 mm right-sided separation of the articular surfaces suggesting potential for a similar degree of anterolisthesis of L4 on L5. Reviewed, dictated and finalized at location A. NG EXAMINER IMPRESSION: 1. Moderate lumbar spondylosis with postoperative changes including partial L5 laminectomy and combined instrumented L5-S1 anterior and posterior spinal fusio n. 2. Severe facet osteoarthritis at L4-L5 with 2 mm left-sided and 3-4 mm right-s ided separation of the articular surfaces suggesting potential for a similar de gree of anterolisthesis of L4 on L5.
== END 2024-09-15 07:45 | disposition home or self-care (01) ==
LOC: MICIMG 07:45
PROVIDERS: PCP Family Medicine; Visit Provider Nurse Practitioner Family
DX: M47.26 Other spondylosis with radiculopathy, lumbar region (principal); M51.369 Other intervertebral disc degeneration, lumbar region without mention of lumbar back pain or lower extremity pain
CPT/HCPCS: 72158; A9577

== ENCOUNTER 2024-12-01 02:44 | Day surgery (SDC) | payer MEDICARE, SELFPAY ==
--- OUTSIDE RECORDS SUMMARY | 2024-12-01 02:46 | XMS_ITS | Encounter Summary ---
Author Organization [facility] Address 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 Gender Identity Not on file Sexual Orientation Not on file documented as of this encounter Plan of Treatment Upcoming Encounters Date Type Department Care Team (Late st Contact Info) Description 01/09/2025 1:00 PM CDT Office Visit [facility] Oncology and Hematology - [place] [address] [facility] [address] [place] [address] Davidson Leggett MD [address] [facility] [address] [place] [address] documented as of this encounter Visit Diagnoses Diagnosis Displacement of cervical intervertebral disc without myelopathy- Primary documented in this encounter Care Teams Group Fitness Instructor Relationship Specialty [place] [address] [place] [address] [place] [address] PCP - General Family Practice 02/29/24 documented as of this encounter
--- OUTSIDE RECORDS SUMMARY | 2024-12-01 02:46 | XMS_ITS | Encounter Summary ---
Author Organization [facility] Address [address] [place] [address] Care Team Providers Care Graphic Design Professor Name Role Phone Kelsey Christy MD Primary Care Provider Encounter Details Date Type Department Care Team (Late st Contact Info) Description 10/11/2002 Outpatient Historical [facility] [address] 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 Gender Identity Not on file Sexual Orientation Not on file documented as of this encounter Plan of Treatment Upcoming Encounters Date Type Department Care Team (Late st Contact Info) Description 01/09/2025 1:00 PM CDT Office Visit [facility] Oncology and Hematology - [place] [address] [facility] [address] [place] [address] Davidson Leggett MD [address] [facility] [address] [place] [address] documented as of this encounter Visit Diagnoses Not on filedocumented in this encounter Care Teams Graphic Design Professor Relationship Specialty Start Date End Date Kelsey Christy MD [address] [place] [address] [place] [address] PCP - General Family Practice 02/29/24 documented as of this encounter
--- OUTSIDE RECORDS SUMMARY | 2024-12-01 02:46 | XMS_ITS | Encounter Summary ---
Author Organization [facility] Address 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 Gender Identity Not on file Sexual Orientation Not on file documented as of this encounter Plan of Treatment Upcoming Encounters Date Type Department Care Team (Late st Contact Info) Description 01/09/2025 1:00 PM CDT Office Visit [facility] Oncology and Hematology - [place] [address] [facility] [address] [place] [address] Davidson Leggett MD [address] [facility] [address] [place] [address] documented as of this encounter Visit Diagnoses Diagnosis Brachial neuritis or radiculitis NOS- Primary Brachial neuritis or radiculitis nos documented in this encounter Care Teams Leather Tanner Relationship Specialty Start Date End Date Kelsey Christy MD [address] [facility] [place] [address] PCP - General Family Practice 02/29/24 documented as of this encounter
--- OUTSIDE RECORDS SUMMARY | 2024-12-01 02:46 | XMS_ITS | Encounter Summary ---
Author Organization [facility] Address 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 Gender Identity Not on file Sexual Orientation Not on file documented as of this encounter Plan of Treatment Upcoming Encounters Date Type Department Care Team (Late st Contact Info) Description 01/09/2025 1:00 PM CDT Office Visit [facility] Oncology and Hematology - [place] [address] [facility] [address] [place] [address] Davidson Leggett MD [address] [facility] [address] [place] [address] documented as of this encounter Visit Diagnoses Diagnosis Cervical spondylosis without myelopathy- Primary documented in this encounter Care Teams Smoking Tobacco Packer Hand Relationship Specialty Start Date End Date Kelsey Christy MD [address] [place] [address] [place] [address] PCP - General Family Practice 02/29/24 documented as of this encounter
--- OUTSIDE RECORDS SUMMARY | 2024-12-01 02:46 | XMS_ITS | Clinical Summary ---
Author Organization [facility] Wendy Marinelli Address [address] [place] [address] Care Team Providers Care Funeral Assistant Name Role Phone Kelsey Christy MD Primary Care Provider Allergies No known active allergies Medications amLODIPine-valsa rtan 5-160 mg Tablet Take by mouth. Active levothyroxine 100 mcg tablet Take 112 mcg by mouth daily in the morning. Active citalopram (CeleXA) 20 mg tablet Take 20 mg by mouth daily at bedtime. Active traMADoL (ULTRAM) 50 mg tablet Take 50 mg by mouth every 6 hours as needed for Pain. Active cyclobenzaprine (FLEXERIL) 10 mg tablet Take 10 mg by mouth 3 times daily as needed for Spasm. Active ALPRAZolam (XANAX XR) 0.5 mg Extended Release 24 hour tablet Take 0.5 mg by mouth daily. Active atorvastatin (LIPITOR) 10 mg tablet Take 10 mg by mouth daily. Active aspirin (ECOTRIN EC) 81 mg Tablet, Delayed Release (E.C.) Take 81 mg by mouth daily. Active cyanocobalamin 1,000 mcg Tablet Take 1,000 mcg by mouth daily. Active CALCIUM CITRATE-VITAMIN D3 ORAL Take by mouth. Active Active Problems No known active problems Encounters Date Type Department Care Team Description 11/29/2024 External Device Data ST[facility] ABSTRACTION Provider, Abstract 11/28/2024 External Device Data [facility] ABSTRACTION Provider, Abstract 11/14/2024 External Device Data [facility] ABSTRACTION Provider, Abstract 10/18/2024 External Device Data ST[facility] ABSTRACTION Provider, Abstract 10/17/2024 External Device Data [facility] ABSTRACTION Provider, Abstract 10/10/2024 External Device Data STL ABSTRACTION Provider, Abstract from Last 3 Months Family History Medical History Relation Name Comments No Known Problems Brother 1 Heart Disease Brother 2 No Known Problems Brother 3 Hypertension Child 1 Hypertension Child 2 Heart Disease Father Heart Disease Mother Heart Disease Sister 1 Hypertension Sister 2 No Known Problems Sister 3 No Known Problems Sister 4 Relation Name Status Comments Brother 1 Brother 2 Brother 3 Alive Child 1 Alive Child 2 Alive Father Mother Sister 1 Alive Sister 2 Alive Sister 3 Alive Sister 4 Alive Social History Tobacco Use Types Packs/Day Years Used Date Smoking Tobacco: Every Day Cigarettes 0.5 30.7 Started: 03/13/1994 Tobacco Cessation:Ready to Q uit: Not Asked; Counseling Given: Not Answered Alcohol Use Standard Drinks/Week Comments Never 0 (1 standard drink = 0.6 oz pur e alcohol) Comments Unknown Sex and Gender Information Value Date Recorded Sex Assigned at Not on file 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 Gender Identity Not on file Sexual Orientation Not on file Last Filed Vital Signs Vital Sign Reading Time Taken Comments Blood Pressure 115/72 07/06/2024 2:10 PM CDT Pulse 96 07/06/2024 2:10 PM CDT Temperature 36.7 C (98 F) 07/06/2024 2:10 PM CDT Respiratory Rate 15 07/06/2024 2:10 PM CDT Oxygen Saturation 93% 07/06/2024 2:10 PM CDT Inhaled Oxygen Concentration - - Weight 64.6 kg (142 lb 6.4 oz) 07/06/2024 2:10 P M CDT Height 170.2 cm (5' 7 ) 03/13/2024 2:19 PM CDT Body Mass Index 22.3 03/13/2024 2:19 PM CDT Plan of Treatment Upcoming Encounters Date Type Department Care Team (Late st Contact Info) Description 01/09/2025 1:00 PM CDT Office Visit [facility] Oncology and Hematology - [place] [address] [facility] [address] [place] [address] Davidson Leggett MD [address] [facility] [address] [place] [address] Health Maintenance Due Date Last Done Comments DTAP/TDAP/TD VACCINES (1 - Tdap) 1974 PNEUMOCOCCAL VACCINE 50+ YEARS (1 of 2 - PCV) 05/13/19 74 BREAST CANCER SCREENING 1995 COLORECTAL SCREENING 2000 Colorectal Cancer Screening 2000 FIT-DNA Q 3 years 2000 FIT/FOBT Q 1 year 2000 Flex Sig/CT Colonography Q 5 years 2000 ZOSTER VACCINE (1 of 2) 2005 OSTEOPOROSIS SCREENING 2020 INFLUENZA VACCINE (#1) 2024 RSV VACCINE (60+ or ) (1 - 1-dose 75+ series) 2030 Insurance O MCR Care Teams Funeral Assistant Relationship Specialty Start Date End Date Kelsey Christy MD [facility] [facility] [place] [address] PCP - General Family Practice 02/29/24
[2024-12-01 09:50] VITALS: BP 152/60; PULSE 88; RESP 18; TEMP 36.6; O2SAT 93
--- NOTE | 2024-12-01 09:54 | P.PNAN_ITS ---
Anes - Initial Pre Proc Eval Procedure: Operation Date: 12/01/24 10:30 Proposed Procedures p Esophagogastroduodenoscopy - Mario Oreilly MD Date/Time: 12/01/24 09:54 Surgeon: Mario Oreilly MD Pre Op Diagnosis: Gastric ulcer Patient Data Age: 69 Gender: F Height: 1.7 m Weight: 67.6 kg Last Vital Signs Temp 97.9 F 12/01/24 09:50 Pulse 88 12/01/24 09:50 Resp 18 12/01/24 09:50 BP 152/60 H 12/01/24 09:50 Pulse Ox 93 12/01/24 09:50 O2 Del Method Room Air 12/01/24 09:50 Allergies Allergy/AdvReac Type Severity Reaction Status Date / Time No Known Allergies Allergy Verified 11/27/24 12:59 Home Medications ?Medication ?Instructions ?Recorded ?Confirmed ?Type mecobalamin (vitamin B12) 1,000 1,000 mcg PO QTUTHSA 05/06/22 11/27/24 History mcg chewable tablet citalopram 20 mg tablet 20 mg PO DAILY #90 tabs 11/01/23 12/01/24 Rx cyclobenzaprine 10 mg tablet 10 mg PO TID PRN muscle spasm #90 12/16/23 11/27/24 Rx tabs aspirin 81 mg tablet,delayed 81 mg PO HS 02/18/24 12/01/24 History release albuterol sulfate 90 mcg/actuation 1 puff inhalation Q4H PRN 06/19/24 11/27/24 Rx aerosol inhaler shortness of breath or wheezing #8.5 grams amlodipine 5 mg-valsartan 160 mg 1 tablet PO DAILY #90 tabs 06/19/24 12/01/24 Rx tablet atorvastatin 10 mg tablet 10 mg PO HS 07/24/24 12/01/24 History pantoprazole 40 mg tablet,delayed 40 mg PO BID #180 tabs 08/15/24 12/01/24 Rx release ergocalciferol (vitamin D2) 1,250 1,250 mcg PO WEEKLY #12 caps 08/17/24 12/01/24 Rx mcg (50,000 unit) capsule alprazolam 0.5 mg tablet 0.5 mg PO BID PRN anxiety #180 tabs 09/29/24 11/27/24 Rx tramadol 50 mg tablet 50 mg PO Q8H PRN pain #90 tabs 10/05/24 11/27/24 Rx levothyroxine 112 mcg tablet 112 mcg PO DAILY #90 tabs 10/31/24 12/01/24 Rx gabapentin 100 mg capsule 100 mg PO TID leg pain 11/27/24 12/01/24 History Patient hx anesthesia problems: none Family hx anesthesia problems: none Results Review: All pre-operative results and documents have been reviewed as part of the pre- operative evaluation. [facility] Past Medical History Medical History Osteopenia Nausea Abnormal WBC count Intermittent palpitations Abnormality of right breast on screening mammogram Left breast mass Environmental allergies Chronic neck and back pain Anxiety Vitamin B12 deficiency Vitamin D deficiency Dyslipidemia Essential (primary) hypertension Hypothyroidism Allergies Surgical History Surgical History History of lumbar spinal fusion (~02/2000) History of section, classical (~1976) History of appendectomy (~1969) Previous back surgery Steel Rods in back H/O neck surgery X3 - 2018, 2015 and 2013 Metal plate in neck Family History Family History Father Hypertension Heart disease Mother Heart disease Hypertension Sibling Hypertension Son Hypertension Social History Social History Smoking packs per day: 0.5 Smoking cigarettes per day: 10.0 Years smoked: 40 Smoking pack-years: 20.00 Smoking status: Current every day smoker Tobacco type: cigarettes Alcohol intake: never Substance use: never Substance use type: does not use Do You Feel Safe in your Home?: Yes Lack of Transportation: No Lack of Food: Never True Current Housing: I Have Housing Concerned About Future Housing: No Difficulty Paying Gas/Electric Bills: No Difficulty Paying for Meds: No Currently Unemployed: No Education: High School Diploma/GED Difficulty w/ Childcare or Family Care: No Living arrangements: alone Spiritual care concerns: No Agree to blood products: Yes Anes - Eval Final PreProcedure Day of Procedure 12/01/24 09:54 Patient weight: overweight Lungs: normal air movement Airway: Mallampati scale class II and special considerations (Upper and lower dentures. ) Neurological: alert and oriented Last oral intake: >/= 8 hours ASA classification: II Emergent: no Anesthetic plan: proceed Anesthesia type and monitoring: general GIVS and standard monitoring Results Review: All pre-operative results and documents have been reviewed as part of the pre- operative evaluation. HTN, hyperlipidemia, smoker 1/2 ppd, smoked this am. EGD for recheck PUD from 07/20. Informed Consent: The patient's anesthetic plan and its attendant risks and benefits were discussed with the patient/family/POA. Questions were solicited and answers provided to the satisfaction of the patient/family/POA.
[2024-12-01] MEDS: LACTATED RINGERS 1,000 ML 150 ML IV CONT (10:10)
--- NOTE | 2024-12-01 10:13 | PM.HPGS ---
History of Present Illness History of Present Illness Consent: Risks, benefits, and alternatives have been discussed and questions answered. Patient agrees to proceed with procedure. Chief complaint: Gastric ulcer Narrative: Keren Amin is a 69 year old female here to repeat another egd, last one 06/2024 with gastric ulcers. She is doing much better now using ppi. Review of Systems Review of Systems: All systems reviewed & are unremarkable except as noted in HPI and below PMFSH Past Medical History Medical History (Updated 12/01/24 @ 10:14 by Mario Oreilly MD) History of gastric ulcer Osteopenia Nausea Abnormal WBC count Intermittent palpitations Abnormality of right breast on screening mammogram Left breast mass Environmental allergies Chronic neck and back pain Anxiety Vitamin B12 deficiency Vitamin D deficiency Dyslipidemia Essential (primary) hypertension Hypothyroidism Allergies Surgical History Surgical History History of lumbar spinal fusion (~02/2000) History of section, classical (~1976) History of appendectomy (~1969) Previous back surgery Steel Rods in back H/O neck surgery X3 - 2018, 2015 and 2013 Metal plate in neck Family History Family History Father Hypertension Heart disease Mother Heart disease Hypertension Sibling Hypertension Son Hypertension Social History Social History Smoking packs per day: 0.5 Smoking cigarettes per day: 10.0 Years smoked: 40 Smoking pack-years: 20.00 Smoking status: Current every day smoker Tobacco type: cigarettes Alcohol intake: never Substance use: never Substance use type: does not use Do You Feel Safe in your Home?: Yes Lack of Transportation: No Lack of Food: Never True Current Housing: I Have Housing Concerned About Future Housing: No Difficulty Paying Gas/Electric Bills: No Difficulty Paying for Meds: No Currently Unemployed: No Education: High School Diploma/GED Difficulty w/ Childcare or Family Care: No Living arrangements: alone Spiritual care concerns: No Agree to blood products: Yes Meds Home Medications and Allergies Home Medications ?Medication ?Instructions ?Recorded ?Confirmed ?Type mecobalamin (vitamin B12) 1,000 1,000 mcg PO QTUTHSA 05/06/22 11/27/24 History mcg chewable tablet citalopram 20 mg tablet 20 mg PO DAILY #90 tabs 11/01/23 12/01/24 Rx cyclobenzaprine 10 mg tablet 10 mg PO TID PRN muscle spasm #90 12/16/23 11/27/24 Rx tabs aspirin 81 mg tablet,delayed 81 mg PO HS 02/18/24 12/01/24 History release albuterol sulfate 90 mcg/actuation 1 puff inhalation Q4H PRN 06/19/24 11/27/24 Rx aerosol inhaler shortness of breath or wheezing #8.5 grams amlodipine 5 mg-valsartan 160 mg 1 tablet PO DAILY #90 tabs 06/19/24 12/01/24 Rx tablet atorvastatin 10 mg tablet 10 mg PO HS 07/24/24 12/01/24 History pantoprazole 40 mg tablet,delayed 40 mg PO BID #180 tabs 08/15/24 12/01/24 Rx release ergocalciferol (vitamin D2) 1,250 1,250 mcg PO WEEKLY #12 caps 08/17/24 12/01/24 Rx mcg (50,000 unit) capsule alprazolam 0.5 mg tablet 0.5 mg PO BID PRN anxiety #180 tabs 09/29/24 11/27/24 Rx tramadol 50 mg tablet 50 mg PO Q8H PRN pain #90 tabs 10/05/24 11/27/24 Rx levothyroxine 112 mcg tablet 112 mcg PO DAILY #90 tabs 10/31/24 12/01/24 Rx gabapentin 100 mg capsule 100 mg PO TID leg pain 11/27/24 12/01/24 History Allergies Allergy/AdvReac Type Severity Reaction Status Date / Time No Known Allergies Allergy Verified 11/27/24 12:59 Vital Signs Vital Signs - 24 hr 12/01/24 09:50 Temperature 97.9 F Pulse Rate 88 Respiratory Rate 18 Blood Pressure 152/60 H Pulse Oximetry 93 Oxygen Delivery Room Air Exam Const: General: comfortable and no acute distress HENMT: Face/Nose/Sinus: Normal nares present Eyes: General: appearance normal, both eyes and all related structures Neck: Neck: no JVD Resp: Auscultation: clear to auscultation bilaterally Cardio: Rate: regular rate Rhythm: regular rhythm GI: Inspection: non-distended GI Palp: Yes Soft to palpation Skin: General skin exam: normal color Neuro: Speech: normal speech Extrem: General: normal to inspection Psych: Mental Status: mental status grossly normal Assessment and Plan Assessment and plan (1) History of gastric ulcer: Code(s): Z87.11 - Personal history of peptic ulcer disease Status: Acute Assessment and Plan: egd to assess healing on ppi and doing great
[2024-12-01 10:23] VITALS: BP 110/59; PULSE 76; RESP 18; O2SAT 94
[2024-12-01 10:33] VITALS: BP 130/68; PULSE 72; RESP 22; O2SAT 97
[2024-12-01 10:43] VITALS: BP 139/72; PULSE 80; RESP 23; O2SAT 93
== END 2024-12-01 11:06 | disposition home or self-care (01) ==
PROVIDERS: PCP Family Medicine; Referring Provider Internal Medicine Gastroenterology; Visit Provider Internal Medicine Gastroenterology
PROC: 0DJ08ZZ Inspection of Upper Intestinal Tract, Via Natural or Artificial Opening Endoscopic (ICD-10-PCS; CPT 43239; principal; 2024-12-01 10:30)
DX: Z09 Encounter for follow-up examination after completed treatment for conditions other than malignant neoplasm (principal); K29.50 Unspecified chronic gastritis without bleeding; K44.9 Diaphragmatic hernia without obstruction or gangrene; Z87.11 Personal history of peptic ulcer disease; F17.210 Nicotine dependence, cigarettes, uncomplicated
CPT/HCPCS: 43239; 88305; J2704; J7120

== ENCOUNTER 2025-01-01 13:29 | Outpatient (CLI) | payer MEDICARE, SELFPAY ==
[2025-01-01 13:56] LABS: Basophils Percent Auto 0.4 % (0.2-1.2); Eosinophils Absolute Auto 0.1 K/mm3 (0-0.3); Hematocrit 32.1 % (37.0-47.0); Hemoglobin 10.1 g/dL (12.0-15.0); Immature Granulocyte Absolute 0.02 K/mm3 (0.00-0.031); Immature Granulocyte Percent A 0.2 % (0-0.5); Lymphocytes Absolute Auto 3.07 K/mm3 (0.9-3.2); Lymphocytes Percent Auto 36.5 % (18.3-44.2); Mean Corpuscular HGB Conc 31.5 g/dl (32-36); Mean Corpuscular Hemoglobin 26.4 pg (26-34); Mean Corpuscular Volume 83.8 fl (80-100); Mean Platelet Volume 9.3 fl (7.4-10.4); Monocytes Absolute Auto 0.6 K/mm3 (0.1-0.6); Monocytes Percent Auto 7.6 % (2.6-8.5); Neutrophils Absolute Auto 4.6 K/mm3 (1.3-6.7); Neutrophils Percent Auto 54.3 % (45.5-73.1); Platelet Count Result 354 k/mm3 (150-375); Red Blood Count 3.83 M/mm3 (4.2-5.4); Red Cell Distribution Width 15.8 % (11.5-14.5); White Blood Count 8.4 K/mm3 (4.5-10.0)
--- OUTSIDE RECORDS SUMMARY | 2025-01-01 15:25 | XMS_ITS | Clinical Summary ---
Author Organization [facility] Wendy Marinelli Address [address] [place] [address] Care Team Providers Care Insurance Law Specialist Name Role Phone Kelsey Christy MD Primary [...] Encounters Date Type Department Care Team Description 12/13/2024 External Device Data [facility] ABSTRACTION Provider, Abstract 12/02/2024 External Device Data [facility] ABSTRACTION Provider, Abstract 12/01/2024 External Device Data [facility] ABSTRACTION Provider, Abstract 11/29/2024 External Device Data [facility] ABSTRACTION Provider, [...] Date Smoking Tobacco: Every Day Cigarettes 0.5 30.8 Started: 03/13/1994 Tobacco Cessation:Ready to Q uit: Not Asked; Counseling Given: Not Answered Alcohol Use Standard Drinks/Week Comments Never 0 (1 standard drink = 0.6 oz pur e alcohol) Comments Unknown Sex and Gender Information Value Date Recorded Sex Assigned at Not on file 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 Gender Identity Not on file Sexual Orientation [...] Description 01/09/2025 1:00 PM CDT Office Visit [facility] Oncology and Hematology - [place] [address] [facility] [address] [place] [address] Davidson Leggett MD [address] [facility] [address] [place] [address] Health Maintenance Due Date Last Done Comments [...] OSTEOPOROSIS SCREENING 2020 INFLUENZA VACCINE (#1) 2024 [place] Prev entative Visit/Annual Wellness Visit 09/27/2024 RSV VACCINE (60+ or ) (1 - 1-dose 75+ series) 2030 Insurance [facility] Care Teams Insurance Law Specialist Relationship Specialty Start Date End Date Kelsey Christy MD [address] [facility] [place] [address] PCP - General Family Practice 02/29/24
--- OUTSIDE RECORDS SUMMARY | 2025-01-01 15:25 | XMS_ITS | Encounter Summary ---
Author Organization [facility] Address [address] [place] [address] Care Team Providers Care Dustless Operator Name Role Phone Kelsey Chirsty MD Primary Care Provider Encounter Details Date [...] on file Legal Sex Female 2:40 AM CV RN Gender Identity Not on file Sexual Orientation Not on file documented as of this encounter Plan of Treatment Upcoming Encounters Date Type Department Care Team (Late st Contact Info) Description 01/09/2025 1:00 PM CDT Office Visit [facility] Oncology and Hematology - [place] [address] [facility] [address] [place] [address] Davidson Leggett MD [address] [facility] [address] [place] [address] documented as of this encounter Visit Diagnoses Diagnosis 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
--- OUTSIDE RECORDS SUMMARY | 2025-01-01 15:25 | XMS_ITS | Encounter Summary ---
Author Organization [facility] Address 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 Gender Identity Not on file Sexual Orientation Not on file documented as of this encounter Plan of Treatment Upcoming Encounters Date Type Department Care Team (Late st Contact Info) Description 01/09/2025 1:00 PM CDT Office Visit [facility] Oncology and Hematology - [place] [address] [facility] [address] [place] [address] Davidson Leggett MD [address] [facility] [address] [place] [address] documented as of this encounter Visit Diagnoses Diagnosis Brachial neuritis or radiculitis NOS- Primary Brachial neuritis or radiculitis nos documented in this encounter Care Teams Inspector Wire Rope Relationship Specialty Start Date End Date Kelsey Christy MD [address] [facility] [place] [address] PCP - General Family Practice 02/29/24 documented as of this encounter
--- OUTSIDE RECORDS SUMMARY | 2025-01-01 15:25 | XMS_ITS | Encounter Summary ---
Author Organization [facility] Address [address] [place] [address] Care Team Providers Care Sprayer Leather Name Role Phone Kelsey Christy MD Primary Care Provider Encounter Details Date Type Department Care Team (Late st Contact Info) Description 10/11/2002 Outpatient Historical [facility] Support Serv. (Adt Cardiology-[facility]) [address] 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 Gender Identity Not on file Sexual Orientation Not on file documented as of this encounter Plan of Treatment Upcoming Encounters Date Type Department Care Team (Late st Contact Info) Description 01/09/2025 1:00 PM CDT Office Visit [facility] Oncology and Hematology - [place] [address] [facility] [address] [place] [address] Davidson Leggett MD [address] [facility] [address] [place] [address] documented as of this encounter Visit Diagnoses Not on filedocumented in this encounter Care Teams Sprayer Leather Relationship Specialty Start Date End Date Kelsey Christy MD [address] [place] [address] [place] [address] PCP - General Family Practice 02/29/24 documented as of this encounter
--- OUTSIDE RECORDS SUMMARY | 2025-01-01 15:25 | XMS_ITS | Encounter Summary ---
Author Organization [facility] Address [address] [place] [address] Care Team Providers Care Concrete Pump Operator Helper Name Role Phone Kelsey Christy MD Primary Care Provider Encounter Details Date Type Department Care Team (Latest Contact Info) Description 09/29/2002 Outpatient Historical [facility] REFRACTORY MANAGER Saurabh Gimenez MD [address] [place] [address] Dept. 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 Gender Identity Not on file Sexual Orientation Not on file documented as of this encounter Plan of Treatment Upcoming Encounters Date Type Department Care Team (Late st Contact Info) Description 01/09/2025 1:00 PM CDT Office Visit [facility] Oncology and Hematology - [place] [address] [facility] 200 [place] [address] Davidson Leggett MD [address] [facility] [address] [place] [address] documented as of this encounter Visit Diagnoses Diagnosis Cervical spondylosis without myelopathy- Primary documented in this encounter Care Teams Concrete Pump Operator Helper Relationship Specialty Start Date End Date Kelsey Christy MD [address] [place] [address] [place] [address] PCP - General Family Practice 02/29/24 documented as of this encounter
[2025-01-01 16:33] LABS: Iron 26 ug/dL (37-170)
[2025-01-01 16:35] LABS: Alanine Aminotransferase 13 U/L (6-35); Albumin Level 4.5 g/dL (3.5-5.1); Alkaline Phosphatase 73 U/L (38-126); Anion Gap 9 mmol/L (4-12); Aspartate Amino Transferase 40 U/L (14-36); Bilirubin,Total 0.3 mg/dL (0.2-1.3); Blood Urea Nitrogen 17 mg/dL (7-17); Calcium 9.5 mg/dL (8.4-10.2); Carbon Dioxide 28 mmol/L (22-30); Chloride 99 mmol/L (98-107); Estimated Glomerular Filt Rate > 60; Glucose 94 mg/dL (65-110); Potassium 4.1 mmol/L (3.4-5.0); Sodium 136 mmol/L (137-145)
[2025-01-01 16:38] LABS: Cholesterol 143 mg/dL (0-200); HDL Direct 54 mg/dL; Triglycerides 105 mg/dL (<150)
[2025-01-01 16:47] LABS: Percent Iron Saturation 5 % (20-50)
[2025-01-01 16:49] LABS: LDL Cholesterol Direct 56 mg/dL
[2025-01-01 16:57] LABS: Free T4 Free Thyroxine 1.16 ng/dL (0.78-2.19); Vitamin D 25 Hydroxy 35.5 ng/mL
[2025-01-01 17:09] LABS: Ferritin 9.62 ng/mL (11.1-264)
[2025-01-01 17:41] LABS: Folic Acid 10.3 ng/mL (2.76->20)
== END 2025-01-01 13:30 | disposition home or self-care (01) ==
LOC: ANHLAB 13:30
PROVIDERS: PCP Family Medicine; Referring Provider Nurse Practitioner Family; Visit Provider Internal Medicine Hematology & Oncology
DX: E03.9 Hypothyroidism, unspecified (principal); E55.9 Vitamin D deficiency, unspecified; E78.5 Hyperlipidemia, unspecified; I10 Essential (primary) hypertension
CPT/HCPCS: 36415; 80053; 80061; 82306; 82607; 82728; 82746; 83540; 83550; 84439; 84443; 85025

== ENCOUNTER 2025-03-08 13:31 | Outpatient (CLI) | payer MEDICARE, SELFPAY ==
--- NOTE | ~2025-03-08 | MM_ITS ---
EXAMINATION: MM screening donna BI w crista HISTORY: Screening TECHNIQUE: Craniocaudal and mediolateral oblique 3-D tomosynthesis images were obtained and synthetic 2-D images were generated. CAD analysis was submitted and interpreted. COMPARISON: Comparison to multiple prior studies sequentially, with oldest reviewed study dated 04/2021. BREAST PARENCHYMAL COMPOSITION: Not dense: There are scattered areas of fibroglandular density. FINDINGS: There is no evidence of suspicious mass, calcification, or architectural distortion to sugg est malignancy in either breast. There has been no suspicious interval change. IMPRESSION: 1. No mammographic evidence of malignancy. 2. Recommend routine screening mammography in one year. BI-RADS Category 1: Negative Reviewed, dictated and finalized at location B.
--- OUTSIDE RECORDS SUMMARY | 2025-03-08 14:10 | XMS_ITS | Encounter Summary ---
Author Organization [facility] Address 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 [address] [place] [address] documented as of this encounter Visit Diagnoses Diagnosis Brachial neuritis or radiculitis NOS- Primary Brachial neuritis or radiculitis nos documented in this encounter Care Teams I&C Tech Relationship Specialty Start Date End Date Kelsey Christy MD [facility] [facility] [place] [address] PCP - General Family Practice 02/29/24 documented as of this encounter
--- OUTSIDE RECORDS SUMMARY | 2025-03-08 14:10 | XMS_ITS | Encounter Summary ---
Author Organization [facility] Address [address] [place] [address] Care Team Providers Care Graphotype Operator Name Role Phone Kelsey Christy MD Primary Care Provider Encounter Details Date Type Department Care Team (Late st Contact Info) Description 10/11/2002 Outpatient Historical [facility] Support Serv. (Adt Cardiology-[facility]) [address] 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 Oncology and Hematology - [place] [address] [facility] 200 [place] [address] Davidson Leggett MD [address] [facility] [address] [place] [address] documented as of this encounter Visit Diagnoses Not on filedocumented in this encounter Care Teams Graphotype Operator Relationship Specialty Start Date End Date Kelsey Christy MD [address] [place] [address] [place] [address] PCP - General Family Practice 02/29/24 documented as of this encounter
--- OUTSIDE RECORDS SUMMARY | 2025-03-08 14:10 | XMS_ITS | Encounter Summary ---
Author Organization [facility] Address 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 Gender Identity Not on file Sexual Orientation Not on file documented as of this encounter Plan of Treatment Upcoming Encounters Date Type Department Care Team (Late st Contact Info) Description 03/14/2025 2:00 PM CDT Office Visit [facility] Oncology and Hematology - [place] [address] [facility] 200 [place] [address] Davidson Leggett MD [address] [facility] [address] [place] [address] documented as of this encounter Visit Diagnoses Diagnosis 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
--- OUTSIDE RECORDS SUMMARY | 2025-03-08 14:11 | XMS_ITS | Encounter Summary ---
Author Organization [facility] Address [address] [place] [address] Care Team Providers Care Anesthesia Tech Name Role Phone Kelsey Christy MD Primary Care Provider Encounter Details Date Type Department Care Team (Latest Contact Info) Description 09/29/2002 Outpatient Historical [facility] FOOD SERVICE WORKER Saurabh Gimenez MD [address] [place] [address] [place] [address] BackerChava MD NO ADDRESS ON FILE CERVICAL SPONDYLOSIS (Primary Dx) Social History Tobacco Use Types Packs/Day Years Used Date Smoking Tobacco: Never Assessed Comments Unknown Sex and Gender Information Value Date Recorded Sex Assigned at Not on file Legal Sex Female 2:40 AM STITCHER HAND Gender Identity Not on file Sexual Orientation Not on file documented as of this encounter Plan of Treatment Upcoming Encounters Date Type Department Care Team (Late st Contact Info) Description 03/14/2025 2:00 PM CDT Office Visit [facility] Oncology and Hematology - [place] [address] [facility] [address] [place] [address] Davidson Leggett MD [address] [facility] [address] [place] [address] documented as of this encounter Visit Diagnoses Diagnosis Cervical spondylosis without myelopathy- Primary documented in this encounter Care Teams Anesthesia Tech Relationship Specialty Start Date End Date Kelsey Christy MD [address] [place] [address] [place] [address] PCP - General Family Practice 02/29/24 documented as of this encounter
--- OUTSIDE RECORDS SUMMARY | 2025-03-08 14:11 | XMS_ITS | Clinical Summary ---
Author Organization [facility] Wendy Marinelli Address [address] [place] [address] Care Team Providers Care Laser/Electro Optics Technician Name Role Phone Kelsey Christy MD Primary [...] CITRATE-VITAMIN D3 ORAL Take by mouth. Active pantoprazole (PROTONIX) 40 mg Tablet, Delayed Release (E.C.) Take 1 Tablet by mouth 2 times daily. 11/20/2024 Active gabapentin (NEURONTIN) 100 mg capsule Take 100 mg by mouth 3 times daily. 12/21/2024 Active Active Problems No known active problems Encounters Date Type Department Care Team Description 02/13/2025 External Device Data [facility] ABSTRACTION Provider, Abstract 01/09/2025 1:00 PM CDT Office Visit [facility] Oncology and Hematology - [place] [address] [place] [address] Davidson Leggett MD Chronic anemia (Primary Dx); Iron deficiency anemia, unspecified iron deficiency anemia type; Normocytic normochromic anemia 01/02/2025 Orders Only [facility] Oncology and Hematology - [place] [address] [place] [address] Davidson Leggett MD 12/13/2024 External Device Data [facility] ABSTRACTION Provider, [...] Date Smoking Tobacco: Every Day Cigarettes 0.5 31 Started: 03/13/1994 Tobacco Cessation:Ready to Q uit: Not Asked; Counseling Given: Not Answered Alcohol Use Standard Drinks/Week Comments Never 0 (1 standard drink = 0.6 oz pur e alcohol) Comments Unknown Sex and Gender Information Value Date Recorded Sex Assigned at Not on file 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 Gender Identity Not on file Sexual Orientation Not on file Last Filed Vital Signs Vital Sign Reading Time Taken Comments Blood Pressure 128/73 01/09/2025 1:17 PM CDT Pulse 80 01/09/2025 1:17 PM CDT Temperature 36.3 C (97.3 F) 01/09/2025 1:17 PM CDT Respiratory Rate 15 01/09/2025 1:17 PM CDT Oxygen Saturation 90% 01/09/2025 1:17 PM CDT Inhaled Oxygen Concentration - - Weight 66.7 kg (147 lb) 01/09/2025 1:17 PM CDT Height 170.2 cm (5' 7) 03/13/2024 2:19 PM CDT Body Mass Index 23.02 03/13/2024 2:19 PM CDT Plan of Treatment Upcoming Encounters Date Type Department Care Team (Late st Contact Info) Description 03/14/2025 2:00 PM CDT Office Visit [facility] Oncology and Hematology - [place] [address] [facility] [address] [place] [address] Davidson Leggett MD [address] [facility] [address] [place] [address] Health Maintenance Due Date Last [...] ) (1 - 1-dose 75+ series) 2030 Procedures Procedure Name Priority Date/Time Associated Diagnosis Comments COMPREHENSIVE METABOLIC PANEL Routine 01/01/2025 12:30 PM CDT from Last 3 Months Results * COMPREHENSIVE METABOLIC PANEL (01/01/2025 12:30 PM CDT) Blood Davidson Leggett MD CHEMISTRY ORDERABLES Final Resu lt from Last 3 Months Insurance [facility] [id number] [facility] Care Teams Laser/Electro Optics Technician Relationship Specialty Start Date End Date Kelsey Christy MD [address] [place] [address] PCP - General Family Practice 02/29/24
== END 2025-03-08 13:32 | disposition home or self-care (01) ==
LOC: ANHIMG 13:33
PROVIDERS: PCP Family Medicine; Visit Provider Family Medicine
DX: Z12.31 Encounter for screening mammogram for malignant neoplasm of breast (principal)
CPT/HCPCS: 77063; 77067